=== PATIENT | female | born 1995 | race Hispanic/Latino ===

== ENCOUNTER 2017-11-29 17:22 | Emergency (ER) | payer OTHER, SELFPAY ==
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
[2017-11-29] MEDS ORDERED: KETOROLAC 30 MG/ML INJ ONE (18:43)
[2017-11-29 19:03] VITALS: TEMP 98.8
[2017-11-29 19:04] VITALS: BP 117/73; O2SAT 100
[2017-11-29 19:28] LABS: Urine Blood 1+ (NEG); Urine Glucose NEGATIVE (NEG); Urine Protein NEGATIVE (NEG)
== END 2017-11-29 18:58 | disposition home or self-care (01) ==
LOC: ER 17:22
DX: J01.90 Acute sinusitis, unspecified (principal)
CPT/HCPCS: 70450; 81003; 81025; 96372; 99284

== ENCOUNTER 2018-03-01 16:51 | Inpatient (IN) | payer BC, OTHER, SELFPAY ==
[2018-03-01] MEDS ORDERED: MORPHINE 4 MG/ML SYR ONE ×3 (17:43→21:34)
[2018-03-01 17:44] LABS: Absolute Lymphocytes (CBC) 3.1 K/uL (0.7-4.9); Absolute Monocytes 1.1 K/uL (0.1-1.3); Absolute Neutrophil 13.9 K/uL (1.8-8.0); Basophils % 0.5 % (0-1.3); Eosinophils % 0.5 % (0-4.4); Hematocrit 41.4 % (36.0-45.0); MCH 31.4 pg (27.0-35.0); MCV 91.5 fL (80-100); MPV 11.1 fL (7.6-11.3); Monocytes % 6.2 % (3.3-12.3); RBC Red Blood Cell Count 4.53 M/uL (3.86-4.86)
[2018-03-01] MEDS ORDERED: ONDANSETRON 4 MG/2 ML VIAL ONE (17:44)
[2018-03-01] MEDS ORDERED: NA CHLORIDE 0.9% 1,000 ML ONE ×3 (17:57→23:09)
[2018-03-01 17:59] LABS: ALT/SGPT 18 U/L (12-78); AST/SGOT 13 U/L (15-37); Albumin 3.7 g/dL (3.4-5.0); Alkaline Phosphatase 57 U/L (45-117); BUN Blood Urea Nitrogen 11 mg/dL (7-18); Bicarbonate 27 mmol/L (21-32); Bilirubin Direct 0.1 mg/dL (0-0.2); Bilirubin Total 0.5 mg/dL (0.2-1.0); Glucose Level 68 mg/dL (74-106); Lipase 143 U/L (73-393); Protein, Total 7.6 g/dL (6.4-8.2); Sodium Level 139 mmol/L (136-145)
[2018-03-01 18:14] LABS: Urine Blood NEGATIVE (NEG); Urine Glucose NEGATIVE (NEG); Urine Protein NEGATIVE (NEG); Urine pH 7.5 (5.0-7.0)
[2018-03-01 18:20] LABS: Urine Bacteria <20 /HPF (<20); Urine RBC NONE SEEN /HPF (NONE SEEN)
[2018-03-01 18:21] LABS: Urine Culture Reflex Order NOT NEEDED
--- NOTE | 2018-03-01 19:53 | RAD REPORT ---
EXAM DESCRIPTION: CTAbdomen Pelvis W Contrast - 03/01/2018 7:40 pm CLINICAL HISTORY: Abdominal pain. RLQ abdomen pain COMPARISON: CT ABD PELVIS W CONTRAST dated 09/28/2014 TECHNIQUE: Biphasic CT imaging of the abdomen and pelvis was performed with 100 ml non-ionic IV cont rast. All CT scans are performed using dose optimization technique as appropriate and may include automated exposure control or mA/KV adjustment according to patient size. FINDINGS: The lung bases are clear. The liver, spleen, adrenal glands and kidneys are within normal limits. Mild inflammation is seen in the region of the pancreatic head and duodenal C-loop suspicious for mild acute pancreatitis. No evid ence of pancreatic necrosis, portal vein thrombus or pseudocyst. Several mildly prominent peripancrea tic lymph nodes also noted. Correlation with amylase and lipase levels is advised. No bowel obstruction, free air, free fluid or abscess. The appendix is normal. No evidence of signi ficant lymphadenopathy. No suspicious bony findings. IMPRESSION: Mild acute pancreatitis is suspected. Correlation with amylase/lipase levels is advised.
--- NOTE | 2018-03-01 20:57 | RAD REPORT ---
EXAM DESCRIPTION: US - Abdomen Exam Limited - 03/01/2018 8:52 pm CLINICAL HISTORY: ABD PAIN COMPARISON: Abdomen Exam Limited dated 06/28/2016; Abdomen Pelvis W Contrast dated 03/01/2018 FINDINGS: The gallbladder demonstrates no gallstones. No pericholecystic fluid or gallbladder wall t hickening. The common bile duct is normal measuring 2 mm. The liver demonstrates no findings of intrahepatic biliary dilatation. IMPRESSION: Unremarkable examination.
--- NOTE | 2018-03-01 21:25 | ER ---
Nurse's Notes [facility] Name: Cate Brown Age: 22 yrs Sex: Female : 1995 Arrival Date: 03/01/2018 Time: 16:53 Bed 27 Private MD: Diagnosis: Acute pancreatitis Presentation: 03/01 16:54 Presenting complaint: Patient states: Upper abdominal pain for the past 2 to 3 days aj1 that has started to go to her right side. Reports nausea Denies fever. Denies V/D. Transition of care: patient was not received from another setting of care. Onset of symptoms was February 26, 2018. Risk Assessment: Do you want to hurt yourself or someone else? Patient reports no desire to harm self or others. Initial Sepsis Screen: Does the patient meet any 2 criteria? HR > 90 bpm. No. Patient's initial sepsis screen is negative. Does the patient have a suspected source of infection? Yes: Acute abdominal pain. Care prior to arrival: None. 16:54 Method Of Arrival: Ambulatory [facility] 16:54 Acuity: JOSELITO 3 aj1 Triage Assessment: 16:57 General: Appears uncomfortable, Behavior is cooperative, anxious, crying. Pain: aj1 Complains of pain in right lower quadrant Pain currently is 7 out of 10 on a pain scale. Neuro: Level of Consciousness is awake, alert, obeys commands. Cardiovascular: Patient's skin is warm and dry. Respiratory: Airway is patent Respiratory effort is even, unlabored, Respiratory pattern is regular, symmetrical. GI: Reports lower abdominal pain, nausea. 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 - Social history:: Smoking status: Patient/guardian denies using tobacco. - Ebola Screening: : Patient denies travel to an Ebola-affected area in the 21 days before illness onset. Screenin:15 Abuse screen: Denies threats or abuse. Denies injuries from another. Nutritional kr2 screening: No deficits noted. Tuberculosis screening: No symptoms or risk factors identified. Fall Risk None identified. Assessment: 17:15 General: Appears in no apparent distress. uncomfortable, well groomed, Behavior is kr2 cooperative, crying, restless. Pain: Complains of pain in right lower quadrant Pain radiates to abdomen Pain currently is 10 out of 10 on a pain scale. Quality of pain is described as sharp, shooting, stabbing, Pain began 2-3 days ago. Is continuous, Alleviated by nothing. Aggravated by increased activity, repositioning. Neuro: Level of Consciousness is awake, alert, obeys commands, Oriented to person, place, time, situation. Cardiovascular: Capillary refill < 3 seconds in bilateral fingers Patient's skin is warm and dry. Respiratory: Airway is patent Respiratory effort is even, unlabored, Respiratory pattern is regular, symmetrical. GI: Bowel sounds present X 4 quads. Abd is soft X 4 quads Abdomen is tender to palpation in right lower quadrant and left lower quadrant. GI: Reports nausea. : Reports pain with urination. EENT: Oral mucosa is moist. Derm: Skin is intact, is healthy with good turgor, Skin is pink, warm \T\ dry. Musculoskeletal: Circulation, motion, and sensation intact. 18:07 Reassessment: Patient completed contrast, CT department notified, spoke with Walter. kr2 19:11 Reassessment: Patient appears in no apparent distress at this time. Patient and/or kr2 family updated on plan of care and expected duration. Pain level reassessed. Patient is alert, oriented x 3, equal unlabored respirations, skin warm/dry/pink. Patient states symptoms have improved. 19:23 Reassessment: Patient states pain is beginning to worsen. Provider notified. kr2 20:25 Reassessment: Patient appears in no apparent distress at this time. Patient and/or kr2 family updated on plan of care and expected duration. Pain level reassessed. Patient is alert, oriented x 3, equal unlabored respirations, skin warm/dry/pink. Pain is decreased. Patient assisted to restroom. 21:30 Reassessment: Patient appears in no apparent distress at this time. Patient and/or kr2 family updated on plan of care and expected duration. Pain level reassessed. Patient is alert, oriented x 3, equal unlabored respirations, skin warm/dry/pink. 22:24 Reassessment: Patient appears in no apparent distress at this time. Patient and/or kr2 family updated on plan of care and expected duration. Pain level reassessed. Patient is alert, oriented x 3, equal unlabored respirations, skin warm/dry/pink. Pain is decreased after pain medication. 23:32 Reassessment: Patient appears in no apparent distress at this time. Patient and/or kr2 family updated on plan of care and expected duration. Pain level reassessed. Patient is alert, oriented x 3, equal unlabored respirations, skin warm/dry/pink. Patient states symptoms have improved. 03/02 00:17 Reassessment: Patient appears in no apparent distress at this time. Patient and/or kr2 family updated on plan of care and expected duration. Pain level reassessed. Patient is alert, oriented x 3, equal unlabored respirations, skin warm/dry/pink. Patient states symptoms have improved. Vital Signs: 03/01 16:57 BP 137 / 92; Pulse 108; Resp 20; Temp 97.6; Pulse Ox 100% on R/A; Weight 81.65 kg (R); aj1 Height 4 ft. 11 in. (149.86 cm) (R); Pain 7/10; 19:00 BP 123 / 90 LA Sitting (auto/lg); Pulse 83; Pulse Ox 99% on R/A; Pain 6/10; jp3 20:25 BP 115 / 70; Pulse 99; Resp 16; Pulse Ox 99% on R/A; kr2 21:30 BP 115 / 72; Pulse 89; Resp 17; Pulse Ox 100% ; kr2 22:24 BP 107 / 77; Pulse 82; Resp 17; Pulse Ox 100% ; kr2 23:33 BP 108 / 67; Pulse 85; Resp 17; Pulse Ox 100% on R/A; kr2 16:57 Body Mass Index 36.36 (81.65 kg, 149.86 cm) aj1 ED Course: 16:53 Patient arrived in ED. as 16:57 Triage completed. aj1 16:57 Arm band placed on Patient placed in an exam room. aj1 17:00 Placed in gown. Bed in low position. Call light in reach. Side rails up X 1. Side rails jp3 up X2. 17:19 Ray Calderon PA is PHCP. cp 17:19 Yousif Lam MD is Attending Physician. cp 17:30 Inserted saline lock: 20 gauge in right antecubital area, using aseptic technique. kr2 Blood collected. 17:32 Stephanie Burns, YOUNG is Primary Nurse. kr2 18:00 Oxygen administration via nasal cannula \T\ 2L/min. jp3 18:07 Urine collected: clean catch specimen, clear, parris colored, Amount Voided: 40mL. jp3 18:07 Urine Microscopic Only Sent. jp3 18:55 Warm blanket given. Pulse ox on. NIBP on. jp3 18:55 Response to oxygen therapy: symptoms improved. jp3 19:41 CT Abd/Pelvis - W/Contrast In Process Unspecified. EDMS 20:52 US Abdomen Limited: RUQ/epigastric area In Process Unspecified. EDMS 21:23 Dominik Delatorre MD is Hospitalizing Provider. cp 03/02 00:18 No provider procedures requiring assistance completed. Patient admitted, IV remains in kr2 place. Administered Medications: 03/01 17:43 Drug: Zofran 4 mg Route: IVP; Site: right antecubital; kr2 18:34 Follow up: Response: No adverse reaction; Nausea is decreased kr2 17:44 Drug: morphine 4 mg Route: IVP; Site: right antecubital; kr2 18:35 Follow up: Response: No adverse reaction; Pain is decreased kr2 17:56 Drug: NS 0.9% 1000 ml Route: IV; Rate: 1 bolus; Site: right antecubital; kr2 19:22 Follow up: Response: No adverse reaction; IV Status: Completed infusion kr2 19:28 Drug: morphine 4 mg Route: IVP; Site: right antecubital; kr2 20:00 Follow up: Response: No adverse reaction; Pain is decreased kr2 21:40 Drug: NS 0.9% 1000 ml Route: IV; Rate: 1 bolus; Site: right antecubital; kr2 23:20 Follow up: Response: No adverse reaction; IV Status: Completed infusion kr2 21:40 Drug: ProTONIX 40 mg Route: IVP; Site: right antecubital; kr2 22:22 Follow up: Response: No adverse reaction; Pain is decreased kr2 21:41 Drug: morphine 4 mg Route: IVP; Site: right antecubital; kr2 22:21 Follow up: Response: No adverse reaction; Pain is decreased kr2 23:20 Drug: NS 0.9% 1000 ml Route: IV; Rate: 125 ml/hr; Site: right antecubital; kr2 03/02 00:19 Follow up: Response: No adverse reaction; IV Status: Infusion continued upon admission kr2 Outcome: 03/01 21:24 Decision to Hospitalize by Provider. cp 03/02 00:18 Admitted to Med/surg accompanied by nurse, family with patient, via wheelchair, room kr2 217, with chart, Report called to YOUNG White Condition: stable Instructed on the need for admit, Demonstrated understanding of instructions. 00:21 Patient left the ED. kr2 Signatures: Dispatcher [employer] EDMS Izzy Osman RN RN farhan1 Sonal Harkins Corey, PA PA cp Reaves, Karey, RN RN kr2 Dennis Mercer jp3 Corrections: (The following items were deleted from the chart) 03/01 18:35 18:00 Inserted saline lock: 20 gauge in right antecubital area, using aseptic kr2 technique. Blood collected. kr2 20:26 19:12 BP 123 / 90; Pulse 87bpm; Resp 18bpm; Pulse Ox 100%; kr2 kr2 20:27 20:25 Reassessment: Patient appears in no apparent distress at this time. Patient kr2 and/or family updated on plan of care and expected duration. Pain level reassessed. Patient is alert, oriented x 3, equal unlabored respirations, skin warm/dry/pink. Pain is decreased kr2
--- NOTE | 2018-03-01 21:25 | EDPHYS ---
Physician Documentation [facility] Name: Cate Brown Age: 22 yrs Sex: Female : 1995 Arrival Date: 03/01/2018 Time: 16:53 Bed 27 Private MD: ED Physician Yousif Lam HPI: 03/01 17:25 This 22 yrs old Female presents to ER via Ambulatory with complaints of cp Abdominal Pain. 17:25 The patient presents with abdominal pain in the upper abdomen. cp 17:25 Onset: The symptoms/episode began/occurred 3 day(s) ago. cp 17:25 The symptoms radiate to right mid back. Associated signs and symptoms: Pertinent cp positives: nausea, vomiting, Pertinent negatives: chest pain, vomiting blood. The symptoms are described as constant. 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 - Social history:: Smoking status: Patient/guardian denies using tobacco. - Ebola Screening: : Patient denies travel to an Ebola-affected area in the 21 days before illness onset. ROS: 17:30 Constitutional: Negative for body aches, chills, fever. cp 17:30 Eyes: Negative for injury, pain, redness, and discharge. cp 17:30 Cardiovascular: Negative for chest pain, edema, palpitations. 17:30 Respiratory: Negative for cough, shortness of breath, wheezing. 17:30 Abdomen/GI: Positive for abdominal pain, nausea, vomiting, Negative for diarrhea, constipation, black/tarry stool, rectal bleeding. 17:30 : Negative for urinary symptoms, pelvic pain, vaginal bleeding, vaginal discharge. 17:30 Skin: Negative for cellulitis, rash. 17:30 All other systems are negative. Exam: 17:38 Constitutional: The patient appears in no acute distress, alert, awake, non-toxic, well cp developed, well nourished, uncomfortable. 17:38 Head/Face: Normocephalic, atraumatic. Eyes: Pupils equal round and reactive to light, cp extra-ocular motions intact. Lids and lashes normal. Conjunctiva and sclera are non-icteric and not injected. Cornea within normal limits. Periorbital areas with no swelling, redness, or edema. ENT: Nares patent. No nasal discharge, no septal abnormalities noted. Tympanic membranes are normal and external auditory canals are clear. Oropharynx with no redness, swelling, or masses, exudates, or evidence of obstruction, uvula midline. Mucous membranes moist. Chest/axilla: Normal chest wall appearance and motion. Nontender with no deformity. No lesions are appreciated. 17:38 Cardiovascular: Rate: tachycardic, Rhythm: regular, Edema: is not appreciated. 17:38 Respiratory: the patient does not display signs of respiratory distress, Respirations: normal, no use of accessory muscles, no retractions, no splinting, no tachypnea, labored breathing, is not present, Breath sounds: are clear throughout, no decreased breath sounds, no stridor, no wheezing. 17:38 Abdomen/GI: Inspection: abdomen appears normal, Bowel sounds: active, all quadrants, Palpation: soft, in all quadrants, severe abdominal tenderness, in the right upper quadrant and right lower quadrant, rebound tenderness, is not appreciated, voluntary guarding, is elicited in the right upper quadrant and right lower quadrant. 17:38 Back: CVA tenderness, that is moderate. 17:38 Skin: cellulitis, is not appreciated, no rash present. 17:38 Neuro: Orientation: to person, place \T\ time. Mentation: lucid, able to follow commands, Motor: moves all fours, strength is normal, Sensation: is normal. Vital Signs: 16:57 BP 137 / 92; Pulse 108; Resp 20; Temp 97.6; Pulse Ox 100% on R/A; Weight 81.65 kg (R); aj1 Height 4 ft. 11 in. (149.86 cm) (R); Pain 7/10; 19:00 BP 123 / 90 LA Sitting (auto/lg); Pulse 83; Pulse Ox 99% on R/A; Pain 6/10; jp3 20:25 BP 115 / 70; Pulse 99; Resp 16; Pulse Ox 99% on R/A; kr2 21:30 BP 115 / 72; Pulse 89; Resp 17; Pulse Ox 100% ; kr2 22:24 BP 107 / 77; Pulse 82; Resp 17; Pulse Ox 100% ; kr2 23:33 BP 108 / 67; Pulse 85; Resp 17; Pulse Ox 100% on R/A; kr2 16:57 Body Mass Index 36.36 (81.65 kg, 149.86 cm) aj1 MDM: 17:19 Patient medically screened. 21:20 Data reviewed: vital signs, nurses notes, lab test result(s), radiologic studies, CT cp scan. 21:23 Physician consultation: Dominik Delatorre MD was called at 21:23, was contacted at 21:23, regarding admission, to the medical/surgical unit. patient's condition. 03/01 17:26 Order name: Basic Metabolic Panel; Complete Time: 18:00 cp 03/01 19:56 Interpretation: Normal except: GLUC 68. 03/01 17:26 Order name: CBC with Diff; Complete Time: 18:00 cp 03/01 20:30 Interpretation: Normal except: WBC 18.4; MCV 91.5; MCH 31.4; BONITA% 75.8; NEUT A 13.9. 03/01 17:26 Order name: Creatinine for Radiology; Complete Time: 18:00 cp 03/01 17:26 Order name: Hepatic Function; Complete Time: 18:00 cp 03/01 21:01 Interpretation: Normal except: AST 13; GLOB 3.9; A/G 0.9. cp 03/01 17:26 Order name: Lipase; Complete Time: 18:00 cp 03/01 18:06 Order name: Urine Microscopic Only; Complete Time: 18:27 la1 03/01 18:28 Interpretation: Normal except: SQEPI LOADED. cp 03/01 17:26 Order name: CT Abd/Pelvis - W/Contrast; Complete Time: 19:55 cp 03/01 18:09 Order name: Urine Dipstick--Ancillary (enter results); Complete Time: 18:27 bd 03/01 18:28 Interpretation: Normal except: UPH 7.5; UESTR 1+. cp 03/01 18:09 Order name: Urine --Ancillary (enter results); Complete Time: 18:27 bd 03/01 18:28 Interpretation: Reviewed. 03/01 19:57 Order name: US Abdomen Limited: RUQ/epigastric area; Complete Time: 21:01 cp 03/01 17:26 Order name: IV Saline Lock; Complete Time: 17:45 cp 03/01 17:26 Order name: Labs collected and sent; Complete Time: 17:45 cp 03/01 17:26 Order name: Urine Dipstick-Ancillary (obtain specimen); Complete Time: 18:07 cp 03/01 17:26 Order name: Urine Test (obtain specimen); Complete Time: 18:07 cp 03/01 19:57 Order name: NPO; Complete Time: 20:11 cp Administered Medications: 17:43 Drug: Zofran 4 mg Route: IVP; Site: right antecubital; kr2 18:34 Follow up: Response: No adverse reaction; Nausea is decreased kr2 17:44 Drug: morphine 4 mg Route: IVP; Site: right antecubital; kr2 18:35 Follow up: Response: No adverse reaction; Pain is decreased kr2 17:56 Drug: NS 0.9% 1000 ml Route: IV; Rate: 1 bolus; Site: right antecubital; kr2 19:22 Follow up: Response: No adverse reaction; IV Status: Completed infusion kr2 19:28 Drug: morphine 4 mg Route: IVP; Site: right antecubital; kr2 20:00 Follow up: Response: No adverse reaction; Pain is decreased kr2 21:40 Drug: NS 0.9% 1000 ml Route: IV; Rate: 1 bolus; Site: right antecubital; kr2 23:20 Follow up: Response: No adverse reaction; IV Status: Completed infusion kr2 21:40 Drug: ProTONIX 40 mg Route: IVP; Site: right antecubital; kr2 22:22 Follow up: Response: No adverse reaction; Pain is decreased kr2 21:41 Drug: morphine 4 mg Route: IVP; Site: right antecubital; kr2 22:21 Follow up: Response: No adverse reaction; Pain is decreased kr2 23:20 Drug: NS 0.9% 1000 ml Route: IV; Rate: 125 ml/hr; Site: right antecubital; kr2 03/02 00:19 Follow up: Response: No adverse reaction; IV Status: Infusion continued upon admission kr2 Disposition: 03/01/18 21:24 Hospitalization ordered by Dominik Delatorre for Observation. Preliminary diagnosis is Acute pancreatitis. - Bed requested for Telemetry/MedSurg (observation). - Status is Observation. kr2 - Condition is Stable. - Problem is new. - Symptoms have improved. UTI on Admission? No Signatures: Dispatcher [employer] EDIzzy Worley RN RN aj1 Ray Calderon PA PA cp Thompson, Matilda mt Stephanie Burns RN RN kr2 Corrections: (The following items were deleted from the chart) 03/01 22:21 21:24 Hospitalization Ordered by Dominik Delatorre MD for Observation. Preliminary me diagnosis is Acute pancreatitis. Bed requested for Telemetry/MedSurg (observation). Status is Observation. Condition is Stable. Problem is new. Symptoms have improved. UTI on Admission? No. cp 03/02 00:21 03/01 22:21 03/01/2018 21:24 Hospitalization Ordered by Dominik Delatorre MD for kr2 Observation. Preliminary diagnosis is Acute pancreatitis. Bed requested for Telemetry/MedSurg (observation). Status is Observation. Condition is Stable. Problem is new. Symptoms have improved. UTI on Admission? No. mt
[2018-03-01] MEDS ORDERED: PANTOPRAZOLE 40 MG INJ ONE (21:34)
--- NOTE | 2018-03-01 23:46 | P.HP ---
Certification for Inpatient Patient admitted to: Observation With expected LOS: <2 Midnights Practitioner: I am a practitioner with admitting privileges, knowledge of patient current condition, hospital course, and medical plan of care. Services: Services provided to patient in accordance with Admission requirements found in Title 42 Section 412.3 of the Code of Federal Regulations Patient History Date of Service: 03/01/18 Reason for admission: Acute pancreatitis, UTI History of Present Illness: Ms Brown is a 22-year-old woman who start about 3 days ago with diffuse abdominal pain, mostly localized in epigastric area. Later the pain radiates to right lower quadrant bilateral upper back. The pain was dull, associated with nausea and vomiting. She denied any fever but has had chills. No diarrhea. Today the pain was getting worse and she decided to come to the ER for evaluation. Lab work remarkable for leukocytosis 18.9 K, UA 1+ Leukocyte Esterases. CT abdomen and pelvis remarkable for sign of acute pancreatitis, however lipase is within normal limits. Subsequent abdominal ultrasound showed no biliary tree abnormalities. Allergies No Known Drug Allergies Allergy (Verified 02/09/17 23:55) Unknown No Known Allergies Allergy (Uncoded 11/29/14 12:43) Unknown Home Medications: Pnv38/Iron Cbn&Gluc/FA/Dss/Dha [Citranatal Assure Combo Pack] 1 tab PO DAILY 07/19 Tramadol HCl [Ultram] 50 mg PO Q6HR #20 tablet 02/10/17 - Past Medical/Surgical History Diabetic: No -: trichomonis and chlamydia treated in 2011 -: D and C 2011 - Family History Father -: Hypertension, Lung disease, Stroke Mother -: Hypertension, Lung disease, Stroke - Social History Alcohol use: No CD- Drugs: No Caffeine use: Yes Place of Residence: Home Review of Systems 10-point ROS is otherwise unremarkable Physical Examination - Physical Exam General: Alert, In no apparent distress HEENT: Atraumatic, PERRLA, Mucous membr. moist/pink, EOMI, Sclerae nonicteric Neck: Supple, 2+ carotid pulse no bruit, No LAD, Without JVD or thyroid abnormality Respiratory: Clear to auscultation bilaterally, Normal air movement Cardiovascular: Regular rate/rhythm, Normal S1 S2 Gastrointestinal: Normal bowel sounds, Tenderness (Epigastric and right lower quadrant tender to palpation) Musculoskeletal: No tenderness Integumentary: No rashes Neurological: Normal speech, Normal strength at 5/5 x4 extr, Normal tone, Normal affect Lymphatics: No axilla or inguinal lymphadenopathy - Studies Laboratory Data (last 24 hrs) 03/01/18 17:30: Creatinine 0.70 03/01/18 17:30: WBC 18.4 H, Hgb 14.2, Hct 41.4, Plt Count 236 03/01/18 17:30: Sodium 139, Potassium 4.0, BUN 11, Creatinine 0.60, Glucose 68 L , Total Bilirubin 0.5, AST 13 L, ALT 18, Alkaline Phosphatase 57, Lipase 143 Assessment and Plan - Problems (Diagnosis) (1) Acute pancreatitis Current Visit: Yes Status: Acute Qualifiers: Pancreatitis type: unspecified pancreatitis type Acute pancreatitis complication: unspecified Qualified Code(s): K85.90 - Acute pancreatitis without necrosis or infection, unspecified (2) UTI (urinary tract infection) Current Visit: Yes Status: Acute Qualifiers: Urinary tract infection type: acute cystitis Hematuria presence: without hematuria Qualified Code(s): N30.00 - Acute cystitis without hematuria - Plan Will start empiric IV antibiotic for UTI. Continue IV fluids and bowel rest for acute pancreatitis. Will order lipid panel to evaluate for decided levels. - Advance Directives Does patient have a Living Will: No Does patient have a Durable POA for Healthcare: No - Code Status/Comfort Care Code Status Assessed: Yes Code Status: Full Code
[2018-03-02] MEDS ORDERED: ACETAMINOPHEN 500 MG TAB PO PRN (00:05)
[2018-03-02] MEDS: NA CHLORIDE 0.9% 1,000 ML IV SCH ×3 (00:05→21:05)
[2018-03-02] MEDS ORDERED: ONDANSETRON 4 MG/2 ML VIAL IV PRN (00:05)
[2018-03-02 00:37] VITALS: BMI 36.6
[2018-03-02] MEDS ORDERED: CEFTRIAXONE 1 GM/NS 50 ML 1 GM/50 ML BAG IV SCH (01:00)
[2018-03-02] MEDS ORDERED: CEFTRIAXONE 1000 MG/VIAL ONE (01:38)
[2018-03-02] MEDS ORDERED: NA CHLORIDE 0.9% 100 ML ONE (01:38)
[2018-03-02 05:23] LABS: Absolute Lymphocytes (CBC) 2.3 K/uL (0.7-4.9); Absolute Monocytes 0.8 K/uL (0.1-1.3); Absolute Neutrophil 10.8 K/uL (1.8-8.0); Basophils % 0.1 % (0-1.3); Eosinophils % 0.4 % (0-4.4); Hematocrit 38.1 % (36.0-45.0); Lymphocytes % 16.7 % (15.3-44.8); MCH 30.5 pg (27.0-35.0); MCV 93.5 fL (80-100); MPV 11.8 fL (7.6-11.3); RBC Red Blood Cell Count 4.07 M/uL (3.86-4.86)
[2018-03-02 05:43] LABS: BUN Blood Urea Nitrogen 6 mg/dL (7-18); Bicarbonate 24 mmol/L (21-32); Glucose Level 87 mg/dL (74-106); Magnesium 2.1 mg/dL (1.8-2.4); Potassium 3.9 mmol/L (3.5-5.1); Sodium Level 141 mmol/L (136-145)
[2018-03-02] MEDS ORDERED: KCL 20 MEQ/100 mL IVPB 20 MEQ/100 ML BAG IV SCH (07:00)
[2018-03-02] MEDS ORDERED: PNEUMOCOCCAL VACCINE 0.5 ML IMVAC ONE (08:00)
[2018-03-02] MEDS: ENOXAPARIN 40 MG/0.4 ML SQ SCH (08:56)
[2018-03-02] MEDS: MORPHINE 2 MG/ML SYR IV PRN ×3 (09:59→21:10)
--- NOTE | 2018-03-02 16:04 | P.PN ---
Subjective Date of Service: 03/02/18 Chief Complaint: Acute pancreatitis, UTI Patient seen and examined at bedside. Boyfriend and best friend at bedside. Case discussed with nursing staff. Patient reports slightly improved pain from yesterday though still having the right-sided abdominal pain and intermittent nausea. Denies any vomiting, diarrhea or fevers. Last bowel movement was 2 days ago but her patient, she normally does not have a bowel movement every day but every other day. Review of Systems As noted above Physical Examination - Vital Signs Temperature: 97.3 F Blood Pressure: 117/70 Pulse: 87 Respirations: 18 Pulse Ox (%): 99 - Physical Exam General: Alert, In no apparent distress HEENT: Atraumatic, PERRLA, EOMI Neck: Supple, JVD not distended Respiratory: Clear to auscultation bilaterally, Normal air movement Cardiovascular: Regular rate/rhythm, Normal S1 S2 Gastrointestinal: Normal bowel sounds, Non-distended, Tenderness (Right upper and lower quadrant), Rebound, Guarding Musculoskeletal: No tenderness Integumentary: No rashes Neurological: Normal speech, Normal tone, Normal affect Lymphatics: No axilla or inguinal lymphadenopathy - Studies Laboratory Data (last 24 hrs) 03/02/18 04:17: Sodium 141, Potassium 3.9, BUN 6 L, Creatinine 0.50 L, Glucose 87, Magnesium 2.1 03/02/18 04:17: Triglycerides 40, Cholesterol 115, HDL Cholesterol 48, Cholesterol/HDL Ratio 2.40, Lipase 83 03/02/18 04:17: WBC 14.0 H D, Hgb 12.4, Hct 38.1, Plt Count 178 D 03/02/18 00:23: Amylase 38 03/01/18 17:30: Creatinine 0.70 03/01/18 17:30: WBC 18.4 H, Hgb 14.2, Hct 41.4, Plt Count 236 03/01/18 17:30: Sodium 139, Potassium 4.0, BUN 11, Creatinine 0.60, Glucose 68 L , Total Bilirubin 0.5, AST 13 L, ALT 18, Alkaline Phosphatase 57, Lipase 143 Medications List Reviewed: Yes Assessment And Plan - Current Problems (Diagnosis) (1) Acute pancreatitis Onset Date: 03/02/18 Current Visit: Yes Status: Acute Plan: Patient admitted for acute pancreatitis. CT with mild acute pancreatitis, appendix noted to be normal. The lipase in normal range though she could still have an episode of acute pancreatitis. She does have a white count. - lipid panel a normal range - Continue NPO, IV fluids. Pain control with medications. Monitor overnight, check a.m. labs. - may consider getting general surgery to see patient to see if any need for surgical evaluation, though less likely. - Will discontinue antibiotics Qualifiers: Pancreatitis type: unspecified pancreatitis type Acute pancreatitis complication: unspecified Qualified Code(s): K85.90 - Acute pancreatitis without necrosis or infection, unspecified Discharge Plan: Home Plan to discharge in: 48 Hours
[2018-03-02] MEDS ORDERED: CEFTRIAXONE/SWI 1gm 1 GM/10 ML SYR IV SCH (21:00)
[2018-03-03] MEDS: MORPHINE 2 MG/ML SYR IV PRN ×2 (04:43→09:47)
[2018-03-03] MEDS: NA CHLORIDE 0.9% 1,000 ML IV SCH ×2 (04:43→16:43)
[2018-03-03 05:12] LABS: Absolute Lymphocytes (CBC) 2.1 K/uL (0.7-4.9); Absolute Monocytes 0.5 K/uL (0.1-1.3); Absolute Neutrophil 5.1 K/uL (1.8-8.0); Basophils % 0.5 % (0-1.3); Eosinophils % 1.4 % (0-4.4); Hematocrit 35.8 % (36.0-45.0); Lymphocytes % 26.9 % (15.3-44.8); MCH 31.2 pg (27.0-35.0); MCV 92.5 fL (80-100); MPV 11.7 fL (7.6-11.3); Monocytes % 5.8 % (3.3-12.3); RBC Red Blood Cell Count 3.87 M/uL (3.86-4.86)
[2018-03-03 05:25] LABS: ALT/SGPT 13 U/L (12-78); AST/SGOT 10 U/L (15-37); Albumin 2.8 g/dL (3.4-5.0); Alkaline Phosphatase 42 U/L (45-117); BUN Blood Urea Nitrogen 7 mg/dL (7-18); Bicarbonate 24 mmol/L (21-32); Glucose Level 67 mg/dL (74-106); Potassium 3.8 mmol/L (3.5-5.1); Protein, Total 6.1 g/dL (6.4-8.2); Sodium Level 140 mmol/L (136-145)
[2018-03-03] MEDS ORDERED: KCL 20 MEQ/100 mL IVPB 20 MEQ/100 ML BAG IV SCH (07:00)
[2018-03-03] MEDS: ENOXAPARIN 40 MG/0.4 ML SQ SCH (08:53)
--- NOTE | 2018-03-03 14:44 | P.PN ---
Subjective Date of Service: 03/03/18 Chief Complaint: Acute pancreatitis, UTI Patient seen and examined at bedside. Boyfriend and mother at bedside. Case discussed with nursing staff. Patient reports vast improvement in pain compared to yesterday. Reports a bowel movement last night. She is walking around without any problems. Denies any nausea, vomiting, diarrhea or fevers. Review of Systems As noted above Physical Examination - Vital Signs Temperature: 97.0 F Blood Pressure: 110/59 Pulse: 58 Respirations: 16 Pulse Ox (%): 100 - Physical Exam General: Alert, In no apparent distress HEENT: Atraumatic, PERRLA, EOMI Neck: Supple, JVD not distended Respiratory: Clear to auscultation bilaterally, Normal air movement Cardiovascular: Regular rate/rhythm, Normal S1 S2 Gastrointestinal: Normal bowel sounds, Tenderness (Mild tenderness on deep palpation, right sided) Musculoskeletal: No tenderness Integumentary: No rashes Neurological: Normal speech, Normal tone, Normal affect - Studies Medications List Reviewed: Yes Assessment And Plan - Current Problems (Diagnosis) (1) Acute pancreatitis Onset Date: 03/02/18 Current Visit: Yes Status: Acute Plan: Patient admitted for acute pancreatitis. CT with mild acute pancreatitis, appendix noted to be normal. The lipase in normal range though she could still have an episode of acute pancreatitis. She does have a white count, which is improved. - lipid panel in normal range - trial of full liquid diet. If she tolerates diet, will discontinue IV fluids. Pain control with medications. check a.m. labs. - Will discontinue antibiotics Qualifiers: Pancreatitis type: unspecified pancreatitis type Acute pancreatitis complication: unspecified Qualified Code(s): K85.90 - Acute pancreatitis without necrosis or infection, unspecified - Plan If tolerating liquid/soft diet common, may discharge home tomorrow Discharge Plan: Home Plan to discharge in: 24 Hours
[2018-03-04 01:05] VITALS: O2SAT 99
[2018-03-04] MEDS: NA CHLORIDE 0.9% 1,000 ML IV SCH (03:51)
[2018-03-04] MEDS: MORPHINE 2 MG/ML SYR IV PRN (03:54)
[2018-03-04 07:04] LABS: Absolute Lymphocytes (CBC) 2.1 K/uL (0.7-4.9); Absolute Monocytes 0.4 K/uL (0.1-1.3); Absolute Neutrophil 3.2 K/uL (1.8-8.0); Basophils % 0.5 % (0-1.3); Eosinophils % 1.7 % (0-4.4); Hematocrit 38.3 % (36.0-45.0); Lymphocytes % 36.5 % (15.3-44.8); MCH 31.9 pg (27.0-35.0); MCV 92.2 fL (80-100); MPV 11.5 fL (7.6-11.3); Monocytes % 6.3 % (3.3-12.3); RBC Red Blood Cell Count 4.16 M/uL (3.86-4.86)
[2018-03-04 07:06] LABS: ALT/SGPT 15 U/L (12-78); AST/SGOT 13 U/L (15-37); Alkaline Phosphatase 40 U/L (45-117); BUN Blood Urea Nitrogen 9 mg/dL (7-18); Bicarbonate 29 mmol/L (21-32); Bilirubin Total 0.7 mg/dL (0.2-1.0); Glucose Level 88 mg/dL (74-106); Potassium 4.2 mmol/L (3.5-5.1); Protein, Total 6.7 g/dL (6.4-8.2); Sodium Level 140 mmol/L (136-145)
[2018-03-04] MEDS: ENOXAPARIN 40 MG/0.4 ML SQ SCH (09:35)
[2018-03-04 11:16] VITALS: BP 109/63; TEMP 97.4
--- NOTE | 2018-03-05 05:22 | DS ---
Date of Discharge: 03/04/2018 Discharge Diagnoses: 1.Acute pancreatitis, improved. 2.Abdominal pain, improved. 3.Nausea. Consult: None. Procedure: CAT scan of the abdomen and pelvis done on the showed mild acute pancreatitis. Ultr asound of the abdomen was unremarkable. For history and physical exam, please refer to Dr. Meyer's admission note. Hospital Course: Initially, the patient presented with history of 3 days of diffuse abdominal pain i n epigastric area. CAT scan of the abdomen showed mild pancreatitis. Lipase, amylase were normal. The patient was admitted to the hospital. Kept n.p.o. with pain medication and her pain improved. T hen she was started on the clear liquid, tolerated that well, but then when we advanced to soft mecha jaylon, she started to have abdominal pain again. So we reduced diet again to clear and we will dischar ge her today in stable condition. She will be discharged on p.r.n. pain medication with Tylenol 3 an d p.r.n. Compazine for nausea if needed. She advised not to advance to regular diet until after few days. She will continue 2 more days of clear liquids and soft mechanical and follow up primary care physician coming week. Discharge Condition: Stable. Discharge Diet: Liquid. Discharge Activity: As tolerated. Discharge Medications: Compazine 10 mg q.6 hours as needed and Tylenol 3 every 6 hours as needed for pain. Discharge Physical Examination: Vital Signs: Blood pressure is 113/70, respiratory rate 16, pulse 6 6, temperature 98.4. General: The patient is alert and oriented x3. Does not look in any distress. HEENT: Atraumatic, normocephalic. PERRLA. Oral mucosa is moist. Neck: Supple. No JVD. No carotid bruits. Chest: Clear to auscultation. Good air entry. Heart: Regular rate and rhythm. S1, S2 normal. No gallop or murmur. Abdomen: Soft. No masses. No hepatosplenomegaly. Positive bowel sounds. Extremities: No clubbing, cyanosis, or edema. No calf tenderness. Neurologic: Grossly intact. RALPH/PIOTR Voice ID: [id number] Report ID: [id number]
== END 2018-03-04 12:35 | disposition home or self-care (01) | DRG 439 ==
LOC: ER 16:51 → ERHOLD 21:31 → 2ND 23:40 → OBSVTOIN 03-02 10:31
PROVIDERS: ADMIT Internal Medicine; ATTEND Internal Medicine
DX: K85.90 Acute pancreatitis without necrosis or infection, unspecified (principal); N30.00 Acute cystitis without hematuria
CPT/HCPCS: 36415; 74177; 76705; 80048; 80053; 80061; 80076; 81003; 81015; 81025; 82150; 83690; 83735; 85025; 96361; 96374; 96375; 99285; C9113; J0696; J1650; J2270; J2405; J7030; Q9967

== ENCOUNTER 2019-01-12 20:03 | Emergency (ER) | payer BC ==
[2019-01-12] MEDS ORDERED: FENTANYL CITR 100 MCG/2 ML ONE ×2 (20:37→21:29)
[2019-01-12] MEDS ORDERED: ONDANSETRON 4 MG/2 ML VIAL ONE (20:38)
[2019-01-12] MEDS ORDERED: KETOROLAC 30 MG/ML INJ ONE (21:29)
--- NOTE | 2019-01-12 22:30 | ER ---
Nurse's Notes [facility] Name: Cate Brown Age: 23 yrs Sex: Female : 1995 Arrival Date: 01/12/2019 Time: 20:05 Bed 27 Private MD: Diagnosis: Sprain of ankle Presentation: 01/12 20:07 Presenting complaint: EMS states: Pt missed a step at [facility]. Pt reported L ankle ca1 rolled both ways, she heard cracking and there was an obvious deformity on the L ankle. 20:07 Method Of Arrival: EMS: [facility] ca1 20:10 Transition of care: patient was not received from another setting of care. Onset of ca1 symptoms was January 12, 2019. Risk Assessment: Do you want to hurt yourself or someone else? Patient reports no desire to harm self or others. Initial Sepsis Screen: Does the patient meet any 2 criteria? No. Patient's initial sepsis screen is negative. Does the patient have a suspected source of infection? No. Patient's initial sepsis screen is negative. Care prior to arrival: Splint applied. 20:10 Acuity: JOSELITO 4 ca1 Triage Assessment: 23:19 Injury Description: Fall and rolled ankle. tr5 [employer]: 20:11 LMP 12/31/2018 ca1 Historical: - Allergies: 20:11 No Known Allergies; ca1 - Home Meds: 20:11 None [Active]; ca1 - PMHx: 20:11 None; ca1 - PSHx: 20:11 None; ca1 - Immunization history:: Adult Immunizations up to date, Last tetanus immunization: up to date. - Social history:: Smoking status: Patient/guardian denies using tobacco. - Ebola Screening: : Patient negative for fever greater than or equal to 101.5 degrees Fahrenheit, and additional compatible Ebola Virus Disease symptoms Patient denies exposure to infectious person Patient denies travel to an Ebola-affected area in the 21 days before illness onset No symptoms or risks identified at this time. Screenin:18 Abuse screen: Denies threats or abuse. Nutritional screening: No deficits noted. tr5 Tuberculosis screening: No symptoms or risk factors identified. Fall Risk None identified. Assessment: 20:18 General: Appears uncomfortable, Behavior is calm, cooperative, appropriate for age. tr5 Pain: Complains of pain in left foot Pain does not radiate. Pain currently is 9 out of 10 on a pain scale. Quality of pain is described as aching, crushing, Pain began 1 hour ago. Is continuous. Neuro: Level of Consciousness is awake, alert, obeys commands, Oriented to person, place, time, Lever Miller are equal bilaterally Moves all extremities. Cardiovascular: Heart tones present Capillary refill < 3 seconds Pulses are all present. Edema is absent. Respiratory: Airway is patent Respiratory effort is even, unlabored, Respiratory pattern is regular, symmetrical. GI: No signs and/or symptoms were reported involving the gastrointestinal system. : No signs and/or symptoms were reported regarding the genitourinary system. EENT: No signs and/or symptoms were reported regarding the EENT system. Derm: No signs and/or symptoms reported regarding the dermatologic system. Musculoskeletal: Capillary refill < 3 seconds, Range of motion: limited in left ankle. 21:34 Reassessment: Patient and/or family updated on plan of care and expected duration. Pain tr5 level reassessed. Patient is alert, oriented x 3, equal unlabored respirations, skin warm/dry/pink. 22:30 Reassessment: Patient appears in no apparent distress at this time. No changes from tr5 previously documented assessment. Patient is alert, oriented x 3, equal unlabored respirations, skin warm/dry/pink. Vital Signs: 20:11 BP 121 / 78; Pulse 94; Resp 19 S; Temp 98.4(O); Pulse Ox 100% on R/A; Weight 97.07 kg ca1 (R); Height 4 ft. 11 in. (149.86 cm) (R); Pain 7/10; 21:34 BP 128 / 77; Pulse 85; Resp 16; Pulse Ox 100% on R/A; tr5 22:30 BP 139 / 76; Pulse 72; Resp 15; Pulse Ox 100% on R/A; tr5 20:11 Body Mass Index 43.22 (97.07 kg, 149.86 cm) ca1 ED Course: 20:05 Patient arrived in ED. ds1 20:07 Jaxon Zambrano PA is PHCP. jmm 20:07 Guicho Leon MD is Attending Physician. jmm 20:10 Bess Ventura RN is Primary Nurse. ca1 20:10 Triage completed. ca1 20:11 Arm band placed on right wrist. Affected limb elevated. ca1 20:15 Geoffrey Delgado, RN is Primary Nurse. tr5 20:18 Patient has correct armband on for positive identification. Pulse ox on. NIBP on. tr5 20:23 Inserted saline lock: 22 gauge in right antecubital area, using aseptic technique. lt1 21:06 Ankle Left 3 View XRAY In Process Unspecified. EDMS 21:06 Tib Fib Left XRAY In Process Unspecified. EDMS 22:24 Thai Newberry MD is Referral Physician. jmm 22:45 Crutch training done. Orthoglass splint: Posterior short lleg splint applied on left lt1 leg. 23:18 No provider procedures requiring assistance completed. IV discontinued. tr5 Administered Medications: 20:39 Drug: fentaNYL (PF) 25 mcg {Note: RAAS:0.} Route: IVP; Site: right antecubital; tr5 21:33 Follow up: Response: Pain is unchanged, physician notified tr5 20:40 Drug: Zofran 4 mg Route: IVP; Site: right antecubital; tr5 21:33 Follow up: Response: Nausea is decreased tr5 21:33 Drug: fentaNYL (PF) 50 mcg Route: IVP; Site: right antecubital; tr5 22:25 Follow up: Response: Pain is decreased tr5 21:33 Drug: Ketorolac 30 mg Route: IVP; Site: right antecubital; tr5 22:27 Follow up: Response: Pain is decreased tr5 Outcome: 22:24 Discharge ordered by MD. july 23:18 Discharged to home via wheelchair. tr5 23:18 Condition: stable 23:18 Discharge instructions given to patient, Instructed on discharge instructions, follow up and referral plans. medication usage, Demonstrated understanding of instructions, follow-up care, medications. 23:20 Patient left the ED. tr5 Signatures: Dispatcher [employer] EDMS Jaxon Zambrano PA PA jmm Sanford, Demi ds1 Bess Ventura RN RN ca1 Bren Hernandez lt1 Geoffrey Delgado RN RN tr5 Corrections: (The following items were deleted from the chart) 20:40 20:39 fentaNYL (PF) 25 mcg IVP in right antecubital tr5 tr5
--- NOTE | 2019-01-12 22:31 | EDPHYS ---
Physician Documentation [facility] Name: Cate Brown Age: 23 yrs Sex: Female : 1995 Arrival Date: 01/12/2019 Time: 20:05 Bed 27 Private MD: ED Physician Guicho Leon HPI: 01/12 20:11 This 23 yrs old Female presents to ER via EMS with complaints of Foot Injury. jmm 20:11 The patient presents with an injury, pain, that is acute. Onset: The symptoms/episode jmm began/occurred acutely. Modifying factors: The symptoms are alleviated by nothing. the symptoms are aggravated by nothing. This is a 23 year old female with no chronic medical conditions that presents to the ED with complaints of left ankle pain. Patient states she misstepped rolling her left ankle. Patient states she felt a pop. Patient denies other injury. . [place]P [place]: 20:11 LMP 12/31/2018 ca1 Historical: - Allergies: 20:11 No Known Allergies; ca1 - Home Meds: 20:11 None [Active]; ca1 - PMHx: 20:11 None; ca1 - PSHx: 20:11 None; ca1 - Immunization history:: Adult Immunizations up to date, Last tetanus immunization: up to date. - Social history:: Smoking status: Patient/guardian denies using tobacco. - Ebola Screening: : Patient negative for fever greater than or equal to 101.5 degrees Fahrenheit, and additional compatible Ebola Virus Disease symptoms Patient denies exposure to infectious person Patient denies travel to an Ebola-affected area in the 21 days before illness onset No symptoms or risks identified at this time. ROS: 20:11 Constitutional: Negative for fever, chills, and weight loss, Cardiovascular: Negative jmm for chest pain, palpitations, and edema, Respiratory: Negative for shortness of breath, cough, wheezing, and pleuritic chest pain. 20:11 MS/extremity: Positive for injury or acute deformity, pain, swelling. 20:11 All other systems are negative. Exam: 20:11 Head/Face: atraumatic. Eyes: EOMI, no conjunctival erythema appreciated ENT: Moist jmm Mucus Membranes Neck: Trachea midline, Supple Chest/axilla: Normal chest wall appearance and motion. Cardiovascular: Regular rate and rhythm. No edema appreciated Respiratory: Normal respirations, no respiratory distress appreciated Abdomen/GI: Non distended, soft Back: Normal ROM Skin: General appearance color normal 20:11 Constitutional: The patient appears in no acute distress, alert, awake, uncomfortable. 20:11 Musculoskeletal/extremity: swelling noted to the left ankle, full dorsalis pulse, compartments are soft, NVI. 20:11 Skin: Appearance: Color: normal in color. 20:11 Neuro: Orientation: is normal, Mentation: is normal, Memory: is normal. 20:11 Psych: Behavior/mood is pleasant, cooperative. Vital Signs: 20:11 BP 121 / 78; Pulse 94; Resp 19 S; Temp 98.4(O); Pulse Ox 100% on R/A; Weight 97.07 kg ca1 (R); Height 4 ft. 11 in. (149.86 cm) (R); Pain 7/10; 21:34 BP 128 / 77; Pulse 85; Resp 16; Pulse Ox 100% on R/A; tr5 22:30 BP 139 / 76; Pulse 72; Resp 15; Pulse Ox 100% on R/A; tr5 20:11 Body Mass Index 43.22 (97.07 kg, 149.86 cm) ca1 Procedures: 22:22 Splinting: Splint applied to left foot using Orthoglass splint, applied by techAleena mcdowell Examined by me, post splint application: neurovascular intact, 2+ distal pulses palpable, brisk capillary refill noted, Patient tolerated well. MDM: 20:11 Patient medically screened. forest 22:22 Data reviewed: vital signs, nurses notes. Counseling: I had a detailed discussion with july the patient and/or guardian regarding: the historical points, exam findings, and any diagnostic results supporting the discharge/admit diagnosis, radiology results, the need for outpatient follow up, to return to the emergency department if symptoms worsen or persist or if there are any questions or concerns that arise at home. ED course: Fracture is not appreciated on plain film. Posterior splint applied. I recommended close ortho follow up and patient and mother given compartment syndrome return precautions. Patient understood and agrees with the plan of care. . 01/12 20:13 Order name: Ankle Left 3 View XRAY [facility] 01/12 20:13 Order name: Tib Fib Left XRAY [facility] 01/12 20:13 Order name: Saline Lock; Complete Time: 20:23 [facility] 01/12 21:25 Order name: Posterior Leg Splint; Complete Time: 22:27 [facility] 01/12 21:25 Order name: Crutches; Complete Time: 22:46 [facility] Administered Medications: 20:39 Drug: fentaNYL (PF) 25 mcg {Note: RAAS:0.} Route: IVP; Site: right antecubital; tr5 21:33 Follow up: Response: Pain is unchanged, physician notified tr5 20:40 Drug: Zofran 4 mg Route: IVP; Site: right antecubital; tr5 21:33 Follow up: Response: Nausea is decreased tr5 21:33 Drug: fentaNYL (PF) 50 mcg Route: IVP; Site: right antecubital; tr5 22:25 Follow up: Response: Pain is decreased tr5 21:33 Drug: Ketorolac 30 mg Route: IVP; Site: right antecubital; tr5 22:27 Follow up: Response: Pain is decreased tr5 Disposition: 01/13 06:43 Co-signature as Attending Physician, Guicho Leon MD. Disposition: 01/12/19 22:24 Discharged to Home. Impression: Sprain of ankle. - Condition is Stable. - Discharge Instructions: Ankle Sprain. - Prescriptions for Ibuprofen 800 mg Oral Tablet - take 1 tablet by ORAL route every 8 hours As needed take with food; 30 tablet. - Medication Reconciliation Form, Thank You Letter, Antibiotic Education, Prescription Opioid Use form. - Follow up: Thai Newberry MD; When: 2 - 3 days; Reason: Recheck today's complaints, Continuance of care, Re-evaluation by your physician. Signatures: Dispatcher [employer] EDMS Jaxon Zambrano PA PA Guicho Bejarano MD MD Bess Ventura, RN RN ca1 Geoffrey Delgado RN RN tr5 Corrections: (The following items were deleted from the chart) 01/12 23:20 22:24 01/12/2019 22:24 Discharged to Home. Impression: Sprain of ankle. Condition is tr5 Stable. Forms are Medication Reconciliation Form, Thank You Letter, Antibiotic Education, Prescription Opioid Use. Follow up: Thai Newberry; When: 2 - 3 days; Reason: Recheck today's complaints, Continuance of care, Re-evaluation by your physician. july
[2019-01-13 01:25] VITALS: TEMP 98.4; O2SAT 100
[2019-01-13 01:27] VITALS: BP 139/76
--- NOTE | 2019-01-13 10:06 | RAD REPORT ---
EXAM DESCRIPTION: RAD - Tib Fib Left - 01/12/2019 9:03 pm CLINICAL HISTORY: Trip and fall, left leg and ankle pain COMPARISON: None. FINDINGS: No fracture is identified. There is no dislocation or periosteal reaction noted. No knee j oint effusion seen. Prominent lateral soft tissue swelling present. Ankle is further detailed on sepa rate report. No foreign body. IMPRESSION: No left tibia fibula acute bone finding.
--- NOTE | 2019-01-13 10:06 | RAD REPORT ---
EXAM DESCRIPTION: RAD - Ankle Left 3 View - 01/12/2019 9:03 pm CLINICAL HISTORY: Trip and fall, left leg and ankle pain COMPARISON: None. FINDINGS: No fracture, dislocation or periosteal reaction. No joint effusion seen. No joint space na rrowing. Prominent lateral soft tissue swelling present. IMPRESSION: Prominent lateral ankle soft tissue swelling. No fracture or acute bone finding identifi ed.
== END 2019-01-12 23:20 | disposition home or self-care (01) ==
LOC: ER 20:03
PROC: 2W3RX1Z Immobilization of Left Lower Leg using Splint (ICD-10-PCS; principal; 2019-01-12)
DX: S93.402A Sprain of unspecified ligament of left ankle, initial encounter (principal); X50.1XXA Overexertion from prolonged static or awkward postures, initial encounter; Y93.89 Activity, other specified
CPT/HCPCS: 73590; 73610; 96375; 96374; 99284; 29515; J3010 ×2; J2405

== ENCOUNTER 2019-05-07 17:43 | Emergency (ER) | payer BC ==
[2019-05-07] MEDS ORDERED: NA CHLORIDE 0.9% 1,000 ML ONE (17:57)
[2019-05-07 18:11] LABS: Absolute Lymphocytes (CBC) 0.3 K/uL (0.7-4.9); Basophils % 0.1 % (0-1.3); Hematocrit 38.3 % (36.0-45.0); Lymphocytes % 3.8 % (15.3-44.8); MPV 11.6 fL (7.6-11.3); RBC Red Blood Cell Count 4.04 M/uL (3.86-4.86)
[2019-05-07 18:23] LABS: ALT/SGPT 16 U/L (12-78); AST/SGOT 17 U/L (15-37); Albumin 3.3 g/dL (3.4-5.0); Alkaline Phosphatase 35 U/L (45-117); BUN Blood Urea Nitrogen 3 mg/dL (7-18); Bicarbonate 20 mmol/L (21-32); Bilirubin Direct 0.1 mg/dL (0-0.2); Bilirubin Total 0.7 mg/dL (0.2-1.0); Glucose Level 85 mg/dL (74-106); Lipase 52 U/L (73-393); Potassium 3.3 mmol/L (3.5-5.1); Protein, Total 6.9 g/dL (6.4-8.2); Sodium Level 137 mmol/L (136-145)
[2019-05-07] MEDS ORDERED: ACETAMINOPHEN 500 MG TAB ONE (18:58)
[2019-05-07 19:51] LABS: Barbiturates NEGATIVE (NEGATIVE); Benzodiazepines NEGATIVE (NEGATIVE); Cocaine NEGATIVE (NEGATIVE); METHAMPHETAM NEGATIVE (NEGATIVE); Methadone NEGATIVE (NEGATIVE); Opiates NEGATIVE (NEGATIVE); Phencyclidine NEGATIVE (NEGATIVE); THC Cannibis NEGATIVE (NEGATIVE)
[2019-05-07] MEDS ORDERED: POTASSIUM CL SA 10 MEQ TAB PO ONE (20:07)
--- NOTE | 2019-05-07 20:29 | ER ---
Nurse's Notes [facility] Name: Cate Brown Age: 23 yrs Sex: Female : 1995 Arrival Date: 05/07/2019 Time: 17:45 Bed 26 Private MD: Diagnosis: Nausea and vomiting Presentation: 05/07 17:47 Presenting complaint: EMS states: found the patient on the floor on her side. she has rv no history of seizure/pre-eclampsia. blood sugar is 86. she does not want to respond to questions properly, but orientation is x4. Transition of care: patient was not received from another setting of care. Onset of symptoms was May 07, 2019 at 17:30. Risk Assessment: Do you want to hurt yourself or someone else? Patient reports no desire to harm self or others. Initial Sepsis Screen: Does the patient meet any 2 criteria? No. Patient's initial sepsis screen is negative. Does the patient have a suspected source of infection? No. Patient's initial sepsis screen is negative. Care prior to arrival: None. 17:47 Method Of Arrival: EMS: [facility] rv 17:47 Acuity: JOSELITO 3 rv Historical: - Allergies: 18:07 No Known Allergies; rv - Home Meds: 18:07 None [Active]; rv - PMHx: 18:07 Pancreatitis; rv - PSHx: 18:07 None; rv - Immunization history:: Adult Immunizations unknown. - Social history:: Smoking status: Patient/guardian denies using tobacco. - Ebola Screening: : No symptoms or risks identified at this time. Screenin:08 Abuse screen: Denies threats or abuse. Denies injuries from another. Nutritional rv screening: No deficits noted. Tuberculosis screening: No symptoms or risk factors identified. Fall Risk None identified. Assessment: 18:07 General: Appears in no apparent distress. Behavior is drowsy, uncooperative. Pain: rv Denies pain. Neuro: Level of Consciousness is able to communicate but does not want to talk. Cardiovascular: Patient's skin is warm and dry. Rhythm is sinus tachycardia. Respiratory: Airway is patent. Derm: Skin is intact. 20:35 Reassessment: Patient appears in no apparent distress at this time. Patient denies pain mg2 at this time. Patient states feeling better. Vital Signs: 17:49 BP 116 / 67; Pulse 111; Resp 18; Temp 98.7; Pulse Ox 100% ; rv 20:09 BP 110 / 74; Pulse 110; Resp 18; Pulse Ox 98% on R/A; mg2 Vitals: 18:06 Heart Tones 150s RLQ. rv ED Course: 17:45 Patient arrived in ED. mg2 17:46 Selvin Muro RN is Primary Nurse. rv 17:47 Kelly Alvarez FNP-C [facility]. kb 17:47 Ray Butler MD is Attending Physician. kb 17:49 Triage completed. rv 18:08 Patient has correct armband on for positive identification. Bed in low position. Call rv light in reach. Seizure precautions initiated. school bus monitor on. Pulse ox on. NIBP on. 18:20 Maintain EMS IV. Dressing intact. Good blood return noted. Site clean \T\ dry. Gauge \T\ rv site: G20 RIGHT FORE ARM, G20 LEFT AC. 20:35 No provider procedures requiring assistance completed. IV discontinued, intact, mg2 bleeding controlled, No redness/swelling at site. Pressure dressing applied. 20:36 Arm band placed on. mg2 Administered Medications: 17:53 Drug: NS 0.9% 1000 ml Route: IV; Rate: 1000 ml; Site: left antecubital; mg2 19:06 Follow up: IV Status: Completed infusion rv 19:07 Follow up: IV Intake: 1000ml rv 20:08 Follow up: Response: No adverse reaction; IV Status: Completed infusion; IV Intake: mg2 1000ml 19:06 Drug: Tylenol 1000 mg Route: PO; rv 20:08 Follow up: Response: No adverse reaction mg2 20:08 Drug: Potassium Chloride 20 mEq Route: PO; mg2 20:35 Follow up: Response: No adverse reaction mg2 Intake: 19:07 IV: 1000ml; Total: 1000ml. rv 20:08 IV: 1000ml; Total: 2000ml. mg2 Outcome: 20:28 Discharge ordered by . kb 20:35 Discharged to home via wheelchair, with family. mg2 20:35 Condition: stable 20:35 Discharge instructions given to patient, family, Instructed on discharge instructions, follow up and referral plans. medication usage, Demonstrated understanding of instructions, follow-up care, medications, Prescriptions given X 1. 20:36 Patient left the ED. mg2 Signatures: Kelly Alvarez FNP-C FNP-Ckb Dar Schwab, RN RN mg2 Selvin Muro, RN RN rv
--- NOTE | 2019-05-07 20:29 | EDPHYS ---
Physician Documentation [facility] Name: Cate Brown Age: 23 yrs Sex: Female : 1995 Arrival Date: 05/07/2019 Time: 17:45 Bed 26 Private MD: ED Physician Ray Butler HPI: 05/07 21:59 This 23 yrs old Female presents to ER via EMS with complaints of vomiting, kb . 21:59 The patient presents to the emergency department with nausea and vomiting, that started kb 4 day(s) ago. course: care: none. Previous pregnancies: in previous pregnancies patient has had. Associated signs and symptoms: Pertinent positives: nausea, vomiting. The patient has experienced similar episodes in the past. The patient has not recently seen a physician. Mother reports pt has had nausea and vomiting for 4 days, worse today. States she has had significant morning sickness with her previous pregnancies as well. Today she stood up and passed out.. Historical: - Allergies: 18:07 No Known Allergies; rv - Home Meds: 18:07 None [Active]; rv - PMHx: 18:07 Pancreatitis; rv - PSHx: 18:07 None; rv - Immunization history:: Adult Immunizations unknown. - Social history:: Smoking status: Patient/guardian denies using tobacco. - Ebola Screening: : No symptoms or risks identified at this time. ROS: 21:57 Constitutional: Negative for fever, chills, and weight loss, ENT: Negative for injury, kb pain, and discharge, Neck: Negative for injury, pain, and swelling, Cardiovascular: Negative for chest pain, palpitations, and edema, Respiratory: Negative for shortness of breath, cough, wheezing, and pleuritic chest pain, Back: Negative for injury and pain, : Negative for injury, bleeding, discharge, and swelling, MS/Extremity: Negative for injury and deformity, Skin: Negative for injury, rash, and discoloration. 21:57 Abdomen/GI: Positive for nausea and vomiting. 21:57 Neuro: Positive for syncope. Exam: 21:57 Constitutional: This is a well developed, well nourished patient who is awake, alert, kb and in no acute distress. Head/Face: Normocephalic, atraumatic. Eyes: Pupils equal round and reactive to light, extra-ocular motions intact. Lids and lashes normal. Conjunctiva and sclera are non-icteric and not injected. Cornea within normal limits. Periorbital areas with no swelling, redness, or edema. ENT: Nares patent. No nasal discharge, no septal abnormalities noted. Tympanic membranes are normal and external auditory canals are clear. Oropharynx with no redness, swelling, or masses, exudates, or evidence of obstruction, uvula midline. Mucous membranes moist. Neck: Trachea midline, no thyromegaly or masses palpated, and no cervical lymphadenopathy. Supple, full range of motion without nuchal rigidity, or vertebral point tenderness. No Meningismus. Chest/axilla: Normal chest wall appearance and motion. Nontender with no deformity. No lesions are appreciated. Cardiovascular: Regular rate and rhythm with a normal S1 and S2. No gallops, murmurs, or rubs. Normal PMI, no JVD. No pulse deficits. Respiratory: Lungs have equal breath sounds bilaterally, clear to auscultation and percussion. No rales, rhonchi or wheezes noted. No increased work of breathing, no retractions or nasal flaring. Abdomen/GI: Soft, non-tender, with normal bowel sounds. No distension or tympany. No guarding or rebound. No evidence of tenderness throughout. Skin: Warm, dry with normal turgor. Normal color with no rashes, no lesions, and no evidence of cellulitis. MS/ Extremity: Pulses equal, no cyanosis. Neurovascular intact. Full, normal range of motion. Neuro: Awake and alert, GCS 15, oriented to person, place, time, and situation. Cranial nerves II-XII grossly intact. Motor strength 5/5 in all extremities. Sensory grossly intact. Cerebellar exam normal. Normal gait. Vital Signs: 17:49 BP 116 / 67; Pulse 111; Resp 18; Temp 98.7; Pulse Ox 100% ; rv 20:09 BP 110 / 74; Pulse 110; Resp 18; Pulse Ox 98% on R/A; mg2 MDM: 17:47 Patient medically screened. kb 21:56 Data reviewed: vital signs, nurses notes. Data interpreted: Pulse oximetry: on room air kb is 98 %. Interpretation: normal. Counseling: I had a detailed discussion with the patient and/or guardian regarding: the historical points, exam findings, and any diagnostic results supporting the discharge/admit diagnosis, lab results, the need for outpatient follow up, an OB/Gyne specialist, to return to the emergency department if symptoms worsen or persist or if there are any questions or concerns that arise at home. 21:58 ED course: Pt was drowsy upon arrival, but woke up and answered questions when asked. kb Pt awake, alert, oriented and ambulatory upon discharge. . 05/07 17:48 Order name: Basic Metabolic Panel; Complete Time: 18:27 kb 05/07 17:48 Order name: CBC with Diff kb 05/07 17:48 Order name: Hepatic Function; Complete Time: 18:27 kb 05/07 17:48 Order name: Lipase; Complete Time: 18:27 kb 05/07 18:07 Order name: Glucose, Ancillary Testing; Complete Time: 18:09 EDMS 05/07 19:10 Order name: UDS; Complete Time: 19:56 kb 05/07 17:48 Order name: IV Saline Lock; Complete Time: 17:53 kb 05/07 17:48 Order name: Labs collected and sent; Complete Time: 17:53 kb 05/07 17:48 Order name: Urine Dipstick-Ancillary (obtain specimen); Complete Time: 20:02 kb 05/07 19:38 Order name: Urine Dipstick--Ancillary (enter results); Complete Time: 20:32 ar5 05/07 19:38 Order name: Urine --Ancillary (enter results); Complete Time: 20:32 ar5 05/07 17:48 Order name: FHT's; Complete Time: 18:20 kb Administered Medications: 17:53 Drug: NS 0.9% 1000 ml Route: IV; Rate: 1000 ml; Site: left antecubital; mg2 19:06 Follow up: IV Status: Completed infusion rv 19:07 Follow up: IV Intake: 1000ml rv 20:08 Follow up: Response: No adverse reaction; IV Status: Completed infusion; IV Intake: mg2 1000ml 19:06 Drug: Tylenol 1000 mg Route: PO; rv 20:08 Follow up: Response: No adverse reaction mg2 20:08 Drug: Potassium Chloride 20 mEq Route: PO; mg2 20:35 Follow up: Response: No adverse reaction mg2 Disposition: 05/07/19 20:28 Discharged to Home. Impression: Nausea and vomiting. - Condition is Stable. - Discharge Instructions: Morning Sickness, [id number], Nausea and Vomiting, Adult, [id number]. - Prescriptions for Diclegis 10- 10 mg Oral tablet,delayed release (DR/EC) - take 1 tablet by ORAL route once daily; 10 tablet. - Medication Reconciliation Form, Thank You Letter, Antibiotic Education, Prescription Opioid Use form. - Follow up: Emergency Department; When: As needed; Reason: Worsening of condition. Follow up: Private Physician; When: 2 - 3 days; Reason: Recheck today's complaints, Continuance of care, Re-evaluation by your physician. Addendum: 05/14/2019 10:47 Co-signature as Attending Physician, Ray Butler MD I agree with the assessment and c teran plan of care. Signatures: Dispatcher [employer] EDMS Kelly Alvarez, COIL WINDING SUPERVISOR-C COIL WINDING SUPERVISOR-Ray Jimenez MD MD cha Gardose, Michele, RN RN mg2 Selvin Muro RN RN rv Corrections: (The following items were deleted from the chart) 05/07 20:36 20:28 05/07/2019 20:28 Discharged to Home. Impression: Nausea and vomiting. Condition mg2 is Stable. Forms are Medication Reconciliation Form, Thank You Letter, Antibiotic Education, Prescription Opioid Use. Follow up: Emergency Department; When: As needed; Reason: Worsening of condition. Follow up: Private Physician; When: 2 - 3 days; Reason: Recheck today's complaints, Continuance of care, Re-evaluation by your physician. kb
[2019-05-07 20:30] LABS: Urine Blood TRACE (NEG); Urine Glucose NEGATIVE (NEG); Urine Protein NEGATIVE (NEG); Urine pH 5.5 (5.0-7.0)
[2019-05-07 20:36] LABS: Blood Morphology Comment NOT SEEN (NOT SEEN); Platelet Estimate ADEQ; Urine White Blood Cell Casts OK
[2019-05-07 22:48] VITALS: TEMP 98.7
[2019-05-07 22:49] VITALS: BP 110/74; O2SAT 98
== END 2019-05-07 20:36 | disposition home or self-care (01) ==
LOC: ER 17:43
DX: O21.9 Vomiting of pregnancy, unspecified (principal); Z3A.00 Weeks of gestation of pregnancy not specified
CPT/HCPCS: 85025; 80048; 36415; 81025; 82947; 80076; 80307 ×8; 81003; 83690; 96360; 99284; J7030

== ENCOUNTER 2019-10-15 02:28 | Inpatient (IN) | payer OTHER ==
[2019-10-15] MEDS ORDERED: METHYLERGONOVINE 0.2MG/ML AMP IM PRN (04:10)
[2019-10-15] MEDS ORDERED: PROMETHAZINE INJ 25 MG/ML AMP IM PRN (04:10)
[2019-10-15] MEDS ORDERED: Ringers Lactate 1,000 ML IV PRN (04:10)
[2019-10-15] MEDS ORDERED: BUTORPHANOL 1 MG/ML INJ IV PRN (04:10)
[2019-10-15 04:21] LABS: Urine Appearance CLEAR; Urine Bilirubin NEGATIVE (NEG); Urine Blood NEGATIVE (NEG); Urine Color YELLOW; Urine Glucose NEGATIVE (NEG); Urine Protein NEGATIVE (NEG)
[2019-10-15 04:22] LABS: Urine Microscopic Reflex NO UMIC
[2019-10-15 04:28] LABS: Absolute Lymphocytes (CBC) 2.5 K/uL (0.7-4.9); Basophils % 0.3 % (0-1.3); Hematocrit 34.7 % (36.0-45.0); Lymphocytes % 26.5 % (15.3-44.8); RBC Red Blood Cell Count 3.88 M/uL (3.86-4.86)
[2019-10-15 04:43] VITALS: BMI 41.3
[2019-10-15] MEDS ORDERED: Ringers Lactate 1,000 ML IV SCH (05:00)
[2019-10-15] MEDS ORDERED: LIDOCAINE 1% MPF 30 ML VIAL SQ ONE (05:07)
--- NOTE | 2019-10-15 05:54 | PREOPHP ---
Date of Admission: 10/15/2019 A 24-year-old 7, para 3, 36 weeks 6 days. She came in lauren regularly. I was told by the nurse who examined her that she is 3.5 to 4, then had progressed over the period of observation t o 5. Last report, the patient was 6 to 7. My exam shows the patient is 4 to 4.5. The baby is still -2 to -3 station. She is lauren regularly. She is in labor but not as far dilated. We will s tart some Pitocin augmentation. She is beta strep negative. Her plan is to go natural childbirth. Full labor talk. ATA/PIOTR Voice ID: [id number]
[2019-10-15] MEDS ORDERED: OXYTOCIN/LR 20 UNIT/1,000 ML BAG IV SCH ×2 (06:00→09:00)
--- NOTE | 2019-10-15 07:54 | PN ---
24-year-old 7, para 3, 36 weeks and 6 days according to best estimates, came in according to nurse active labor. Went from 3 cm with the observation to 5 cm, and was admitted at that time. I w as told before I came to the hospital, patient was 6.5 to 7 cm, but on my exam, patient was 4.5 cm, 5 0% effaced, vertex, still -2 to -3 station. Light Pitocin has been started. Baby is now down at -1 station, 5 cm, 70% to 80% effaced, rupture of membranes, clear fluid. A good bloody show was noted b ut the fluid was clear. Baby looks good on the monitor. Anticipate more rapid progress from this po int forward. ATA/PIOTR Voice ID: [id number] Report ID: [id number]
[2019-10-15] MEDS ORDERED: CARBOPROST TROME 250 MCG/ML IM ONE (08:07)
[2019-10-15] MEDS ORDERED: DOCUSATE NA/SENNA CONC 1 TAB PO PRN (08:17)
[2019-10-15] MEDS ORDERED: ACETAMINOPHEN 500 MG TAB PO PRN (08:17)
[2019-10-15] MEDS ORDERED: BISACODYL 10 MG RECTAL SUPP RC PRN (08:17)
[2019-10-15] MEDS ORDERED: Oxycodone HCl/Acetaminophen 1 TAB TAB PO PRN (08:17)
[2019-10-15] MEDS ORDERED: IBUPROFEN 600 MG TAB PO PRN (08:17)
[2019-10-15] MEDS ORDERED: DIPHENHYDRAMINE 25 MG TAB/CAP PO PRN (08:17)
--- NOTE | 2019-10-15 10:05 | OP ---
Surgeon: Gabino Dan MD 24-year-old 7, para 3, followed antepartum without complications. Rh positive, immune to Rub kevin. Negative beta strep screen. Is admitted to Labor and Delivery after showing regular uterine c ontractions and cervical change, was 5 cm when first examined by myself, rupture of membranes, bloody show, but clear fluid. Patient had 1 mg of Stadol shortly after, went rapidly to complete. Second stage consisted of 1 series of pushes, delivery of a 7-pound plus or minus female, Apgars 9 and 9. N o episiotomy. No laceration. Schultze delivery of the placenta, which was inspected and noted to be intact and normal. Less than 300 cc blood loss. Final Diagnoses: Intrauterine gestation, 36 weeks 6 days, spontaneous labor, vaginal delivery, beta strep negative. ATA/PIOTR Voice ID: [id number] Report ID: [id number]
[2019-10-15] MEDS: Oxycodone HCl/Acetaminophen 1 TAB TAB PO PRN (20:35)
[2019-10-16] MEDS: Oxycodone HCl/Acetaminophen 1 TAB TAB PO PRN ×2 (01:25→06:10)
[2019-10-16 01:28] LABS: RPR (Rapid Plasma Reagin) NON-REACT (NON-REACT)
[2019-10-16] MEDS ORDERED: Ringers Lactate 1,000 ML IV ONE (07:07)
[2019-10-16 07:29] VITALS: BP 111/69; TEMP 97.2
--- NOTE | 2019-10-16 10:07 | DS ---
Hospital Course: This is a 24-year-old, 7, para 3, at 36 weeks and 6 days, came in early lab or. Subsequently, delivered of an estimated 7-pound female, Apgars 9 and 9. No episiotomy. No lace rations. Schultze delivery of the placenta, which was inspected and noted to be intact and normal. 300 mL or less blood loss. The patient had Stadol 1 mg IV during the labor, otherwise natural childb irth. ; afebrile, ambulating and voiding. Lochia is normal. Requests Tramadol for analge tin. She knows this goes through the breast milk. She has been thinking about a tubal sterilization , which she will have at [facility] after her 6-week checkup, but now is not so sure and we discussed other forms of control such as a ParaGard, which lasts 10 years. She will decide in the interim. Final Diagnoses: Intrauterine gestation, 36 weeks 6 days, vaginal delivery. ATA/PIOTR Voice ID: [id number] Report ID: [id number]
[2019-10-17 17:43] LABS: HBsAG Nonreactive (Nonreactive)
== END 2019-10-16 10:25 | disposition home or self-care (01) | DRG 807 ==
LOC: L&D 02:28 → 2ND-WCNRSY 04:01 → UNDOADMIN 04:01 → 2ND-WC 04:10
PROVIDERS: ADMIT Specialist; ATTEND Specialist
PROC: 10E0XZZ Delivery of Products of Conception, External Approach (ICD-10-PCS; principal; 2019-10-15)
PROC: 10907ZC Drainage of Amniotic Fluid, Therapeutic from Products of Conception, Via Natural or Artificial Opening (ICD-10-PCS; 2019-10-15)
PROC: 3E033VJ Introduction of Other Hormone into Peripheral Vein, Percutaneous Approach (ICD-10-PCS; 2019-10-15)
DX: O80 Encounter for full-term uncomplicated delivery (principal); Z37.0 Single live birth; Z3A.36 36 weeks gestation of pregnancy
CPT/HCPCS: 36415; 81003; 85025; 86592; 86850; 86900; 86901; 87340; J0595; J2210; J2550; J2590; J7120

== ENCOUNTER 2020-07-17 07:39 | Emergency (ER) | payer OTHER ==
--- OUTSIDE RECORDS SUMMARY | 2020-07-17 07:42 | XMS REPORT | Continuity of Care Document ---
:1995 Author Organization [facility] t Address [address] [place] [address] Care Team Providers Name Role Phone Kelli Carter NP Attending Clinician Problems This patient has no known problems. Allergies, Adverse Reactions, Alerts This patient has no known allergies or adverse reactions. Medications This patient has no known medications. Procedures This patient has no known procedures. Encounters Start End Encounter Admission Attending Care Care Encounter Source Date/Time Date/Time Type Type Clinicians Facility Department ID 2020-02-11 2020-02-12 [facility] [id number] 23:02:00 01:52:00 Julia Upton [id number] [place] [id number] [place] [id number] Results This patient has no known results.
--- NOTE | 2020-07-17 08:26 | RAD REPORT ---
EXAM DESCRIPTION: RAD - Chest Single View - 07/17/2020 8:16 am CLINICAL HISTORY: COUGH, headache, shortness of breath COMPARISON: September 2014 TECHNIQUE: AP portable chest image was obtained 07/17/2020 8:16 am . FINDINGS: Lungs are clear. Heart and vasculature are normal. No measurable pleural effusion and no p neumothorax. No acute bony abnormality seen. No acute aortic findings suspected. IMPRESSION: No acute cardiopulmonary process. No significant change from comparison study.
[2020-07-17] MEDS ORDERED: ACETAMINOPHEN 500 MG TAB ONE (09:19)
[2020-07-17 09:26] LABS: SARS-COV-2 RT PCR NEGATIVE (NEGATIVE)
--- NOTE | 2020-07-17 09:42 | EDPHYS ---
Physician Documentation [facility] Name: Cate Brown Age: 25 yrs Sex: Female : 1995 Arrival Date: 07/17/2020 Time: 07:42 Bed 4 Private MD: ED Physician Ray Butler HPI: 07/17 08:29 This 25 yrs old Female presents to ER via Ambulatory with complaints of Cough, michael Congestion. 08:29 The patient or guardian reports cough, described as mild. Onset: The symptoms/episode michael began/occurred 3 day(s) ago. Severity of symptoms: At their worst the symptoms were mild, in the emergency department the symptoms are unchanged. 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 - Social history:: Smoking status: Patient denies any tobacco usage or history of. ROS: 08:30 Constitutional: Negative for fever, chills, and weight loss, Eyes: Negative for injury, michael pain, redness, and discharge, Neck: Negative for injury, pain, and swelling, Cardiovascular: Negative for chest pain, palpitations, and edema, Respiratory: Negative for shortness of breath, cough, wheezing, and pleuritic chest pain, Abdomen/GI: Negative for abdominal pain, nausea, vomiting, diarrhea, and constipation, Back: Negative for injury and pain, : Negative for injury, bleeding, discharge, and swelling, MS/Extremity: Negative for injury and deformity, Skin: Negative for injury, rash, and discoloration, Neuro: Negative for headache, weakness, numbness, tingling, and seizure, Psych: Negative for depression, anxiety, suicide ideation, homicidal ideation, and hallucinations, Allergy/Immunology: Negative for hives, rash, and allergies, Endocrine: Negative for neck swelling, polydipsia, polyuria, polyphagia, and marked weight changes, Hematologic/Lymphatic: Negative for swollen nodes, abnormal bleeding, and unusual bruising. 08:30 ENT: Positive for nasal discharge, rhinorrhea. Exam: 08:30 Constitutional: This is a well developed, well nourished patient who is awake, alert, michael and in no acute distress. Head/Face: Normocephalic, atraumatic. Eyes: Pupils equal round and reactive to light, extra-ocular motions intact. Lids and lashes normal. Conjunctiva and sclera are non-icteric and not injected. Cornea within normal limits. Periorbital areas with no swelling, redness, or edema. ENT: Nares patent. No nasal discharge, no septal abnormalities noted. Tympanic membranes are normal and external auditory canals are clear. Oropharynx with no redness, swelling, or masses, exudates, or evidence of obstruction, uvula midline. Mucous membranes moist. Neck: Trachea midline, no thyromegaly or masses palpated, and no cervical lymphadenopathy. Supple, full range of motion without nuchal rigidity, or vertebral point tenderness. No Meningismus. Chest/axilla: Normal chest wall appearance and motion. Nontender with no deformity. No lesions are appreciated. Cardiovascular: Regular rate and rhythm with a normal S1 and S2. No gallops, murmurs, or rubs. Normal PMI, no JVD. No pulse deficits. Abdomen/GI: Soft, non-tender, with normal bowel sounds. No distension or tympany. No guarding or rebound. No evidence of tenderness throughout. Back: No spinal tenderness. No costovertebral tenderness. Full range of motion. Skin: Warm, dry with normal turgor. Normal color with no rashes, no lesions, and no evidence of cellulitis. MS/ Extremity: Pulses equal, no cyanosis. Neurovascular intact. Full, normal range of motion. Neuro: Awake and alert, GCS 15, oriented to person, place, time, and situation. Cranial nerves II-XII grossly intact. Motor strength 5/5 in all extremities. Sensory grossly intact. Cerebellar exam normal. Normal gait. Psych: Awake, alert, with orientation to person, place and time. Behavior, mood, and affect are within normal limits. 08:30 Respiratory: the patient does not display signs of respiratory distress, Respirations: normal, Breath sounds: are clear throughout, no acute changes, throughout. 08:30 Musculoskeletal/extremity: DVT Exam: No signs of deep vein thrombosis. no pain, no swelling, no tenderness, negative Homans' sign noted on exam, no appreciated bluish discoloration, no erythema, no increased warmth. Vital Signs: 07:47 BP 122 / 89; Pulse 101; Resp 20 S; Temp 99.0(O); Pulse Ox 98% on R/A; Weight 89.81 kg aa5 (R); Height 4 ft. 11 in. (149.86 cm) (R); Pain 8/10; 09:09 BP 127 / 82; Pulse 100; Resp 18 S; Pulse Ox 96% on R/A; jd3 10:20 BP 135 / 59; Pulse 65; Resp 17 S; Pulse Ox 97% on R/A; jd3 07:47 Body Mass Index 39.99 (89.81 kg, 149.86 cm) aa5 MDM: 07:48 Patient medically screened. [facility] 08:31 Differential diagnosis: bronchitis. Antibiotic administration: Not indicated. [facility] Differential Diagnosis: Bronchitis Influenza Upper Respiratory Infection Sinusitis. Data reviewed: vital signs, nurses notes, lab test result(s), radiologic studies, plain films. Data interpreted: transfer agent: rate is 101 beats/min, Pulse oximetry: on room air is 98 %. Test interpretation: by ED physician or midlevel provider: plain radiologic studies. Counseling: I had a detailed discussion with the patient and/or guardian regarding: the historical points, exam findings, and any diagnostic results supporting the discharge/admit diagnosis, lab results, radiology results, the need for outpatient follow up. 07/17 07:55 Order name: COVID-19 : Document "Date of Symptom Onset" if Symptomatic. [facility] 07/17 07:55 Order name: Flu [facility] 07/17 07:55 Order name: Chest Single View XRAY [facility] 07/17 08:44 Order name: [facility] 07/17 08:44 Order name: Influenza Screen (A [facility] 07/17 09:26 Order name: COVID-19/FLU A+B; Complete Time: 09:36 [facility] 07/17 08:26 Order name: RAD; Complete Time: 08:29 [facility] 07/17 09:00 Order name: PO challenge; Complete Time: 09:02 michael Administered Medications: 09:04 Drug: Tylenol 1000 mg Route: PO; jd3 10:00 Follow up: Response: No adverse reaction jd3 10:18 Drug: Zithromax 500 mg Route: PO; jd3 10:20 Follow up: Response: Medication administered at discharge. jd3 10:19 Drug: predniSONE 40 mg Route: PO; jd3 10:20 Follow up: Response: Medication administered at discharge. jd3 Disposition: 07/17/20 09:41 Discharged to Home. Impression: Acute upper respiratory infection, unspecified. - Condition is Stable. - Discharge Instructions: Upper Respiratory Infection, Adult, Cool Mist Vaporizer, Upper Respiratory Infection, Adult, Ruyy-ah-Jgon. - Prescriptions for Paulina- D 12 Hour 60-120 mg Oral Tablet Sustained Release 12 hr - take 1 tablet by ORAL route every 12 hours As needed; 20 tablet. Zithromax Z- Stan 250 mg Oral Tablet - take 1 tablet by ORAL route as directed for 5 days Day 1 - take two (2) tablets one time. Day 2, 3, 4 , 5 take one (1) tablet once daily.; 6 tablet. Medrol (Stan) 4 mg Oral Tablets, Dose Pack - take 1 tablet by ORAL route as directed - follow package instructions; 1 packet. - Medication Reconciliation Form, Thank You Letter, Antibiotic Education, Prescription Opioid Use, Work release form form. - Follow up: Private Physician; When: 2 - 3 days; Reason: Recheck today's complaints, Continuance of care, Re-evaluation by your physician. - Problem is new. - Symptoms have improved. Signatures: Dispatcher [employer] EDRay Mcgowan MD MD cha Calderon, Audri, RN RN aa5 Moshe Egan RN RN jd3 Corrections: (The following items were deleted from the chart) 10: 09:41 07/17/2020 09:41 Discharged to Home. Impression: Acute upper respiratory jd3 infection, unspecified. Condition is Stable. Forms are Medication Reconciliation Form, Thank You Letter, Antibiotic Education, Prescription Opioid Use. Follow up: Private Physician; When: 2 - 3 days; Reason: Recheck today's complaints, Continuance of care, Re-evaluation by your physician. Problem is new. Symptoms have improved. michael
--- NOTE | 2020-07-17 09:42 | ER ---
Nurse's Notes [facility] Name: Cate Brown Age: 25 yrs Sex: Female : 1995 Arrival Date: 07/17/2020 Time: 07:42 Bed 4 Private MD: Diagnosis: Acute upper respiratory infection, unspecified Presentation: 07/17 07:47 Chief complaint: Patient states: cough, nasal congestion, headache, and SOB x 2 days aa5 ago. 07:47 Coronavirus screen: cough unrelated to allergies, headache, shortness of breath, Client aa5 presents with at least one sign or symptom that may indicate coronavirus-19. Standard/surgical mask placed on the client. Provider contacted for isolation considerations. Ebola Screen: Patient negative for fever greater than or equal to 101.5 degrees Fahrenheit, and additional compatible Ebola Virus Disease symptoms. Initial Sepsis Screen: Does the patient meet any 2 criteria? HR > 90 bpm. Does the patient have a suspected source of infection? Yes:. Risk Assessment: Do you want to hurt yourself or someone else? Patient reports no desire to harm self or others. Onset of symptoms was July 2020. 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 - Social history:: Smoking status: Patient denies any tobacco usage or history of. Screenin:15 Abuse screen: Denies threats or abuse. Nutritional screening: No deficits noted. jd3 Tuberculosis screening: No symptoms or risk factors identified. Fall Risk Ambulatory Aid- None/Bed Rest/Nurse Assist (0 pts). Gait- Normal/Bed Rest/Wheelchair (0 pts) Mental Status- Oriented to own ability (0 pts). Total Abdi Fall Scale indicates No Risk (0-24 pts). Assessment: 08:13 General: Appears in no apparent distress. comfortable, Behavior is calm, cooperative, jd3 appropriate for age. Pain: Denies pain. Neuro: Level of Consciousness is awake, alert, obeys commands, Oriented to person, place, time, situation. Cardiovascular: Denies chest pain, Heart tones present Capillary refill < 3 seconds Patient's skin is warm and dry. Respiratory: Reports shortness of breath cough that is persistent Airway is patent Respiratory effort is even, unlabored, Respiratory pattern is regular, symmetrical, Breath sounds are clear bilaterally. GI: No signs and/or symptoms were reported involving the gastrointestinal system. : No signs and/or symptoms were reported regarding the genitourinary system. EENT: No signs and/or symptoms were reported regarding the EENT system. Derm: Skin is intact, Skin is dry, Skin is normal, Skin temperature is warm. Musculoskeletal: Circulation, motion, and sensation intact. Range of motion: intact in all extremities. 09:09 Reassessment: Patient appears in no apparent distress at this time. Patient and/or jd3 family updated on plan of care and expected duration. Pain level reassessed. Patient is alert, oriented x 3, equal unlabored respirations, skin warm/dry/pink. medicated for headache. pt tolerating PO fluids. 10:20 Reassessment: Patient appears in no apparent distress at this time. Patient and/or jd3 family updated on plan of care and expected duration. Pain level reassessed. Patient is alert, oriented x 3, equal unlabored respirations, skin warm/dry/pink. Patient states feeling better. Vital Signs: 07:47 BP 122 / 89; Pulse 101; Resp 20 S; Temp 99.0(O); Pulse Ox 98% on R/A; Weight 89.81 kg aa5 (R); Height 4 ft. 11 in. (149.86 cm) (R); Pain 8/10; 09:09 BP 127 / 82; Pulse 100; Resp 18 S; Pulse Ox 96% on R/A; jd3 10:20 BP 135 / 59; Pulse 65; Resp 17 S; Pulse Ox 97% on R/A; jd3 07:47 Body Mass Index 39.99 (89.81 kg, 149.86 cm) aa5 ED Course: 07:42 Patient arrived in ED. am2 07:47 Arm band placed on. aa5 07:48 Ray Butler MD is Attending Physician. michael 07:53 Moshe Egan RN is Primary Nurse. jd3 07:54 Triage completed. aa5 08:15 Patient has correct armband on for positive identification. Bed in low position. Call jd3 light in reach. Side rails up X 1. Pulse ox on. NIBP on. 10:21 No provider procedures requiring assistance completed. Patient did not have IV access jd3 during this emergency room visit. Administered Medications: 09:04 Drug: Tylenol 1000 mg Route: PO; jd3 10:00 Follow up: Response: No adverse reaction jd3 10:18 Drug: Zithromax 500 mg Route: PO; jd3 10:20 Follow up: Response: Medication administered at discharge. jd3 10:19 Drug: predniSONE 40 mg Route: PO; jd3 10:20 Follow up: Response: Medication administered at discharge. jd3 Outcome: :41 Discharge ordered by . michael 10:21 Discharged to home ambulatory. jd3 10:21 Condition: stable 10:21 Discharge instructions given to patient, Instructed on discharge instructions, follow up and referral plans. medication usage, Demonstrated understanding of instructions, follow-up care, medications, Prescriptions given X 3. 10:21 Patient left the ED. jd3 Signatures: Ray Butler MD MD cha Calderon, Audri, RN RN aa5 Inna Gil Jonathon, RN RN jd3
[2020-07-17 10:26] VITALS: TEMP 99
[2020-07-17 10:28] VITALS: BP 135/59; O2SAT 97
[2020-07-17] MEDS ORDERED: AZITHROMYCIN 250 MG TAB ONE (10:30)
[2020-07-17] MEDS ORDERED: predniSONE 20 MG TAB ONE (10:30)
== END 2020-07-17 10:21 | disposition home or self-care (01) ==
LOC: ER 07:39
DX: J06.9 Acute upper respiratory infection, unspecified (principal); Z20.822 Contact with and (suspected) exposure to COVID-19
CPT/HCPCS: 0240U; 71045; J7512; 99283

== ENCOUNTER 2022-12-05 20:38 | Emergency (ER) | payer OTHER ==
--- OUTSIDE RECORDS SUMMARY | 2022-12-05 20:42 | XMS REPORT | Continuity of Care Document ---
:1995 Author Organization [facility] t Address [address] [facility] [address] [place] [id number] Care Team Providers Name Role Phone Cindy Suero Primary Care Physician Cleo Edgar Attending Clinician CLEO FAN Attending Clinician Unavailable Unknown, Attending Attending Clinician Unavailable Georgette Farris Attending Clinician GEORGETTE GORDON Attending Clinician Unavailable Doctor Unassigned, [place] Attending Clinician Unavailable BRIAN PHILIP Attending Clinician Unavailable Brian Philip MD Attending Clinician Kathy Lovell RN Attending Clinician Unavailable ZAHIRA LAI Attending Clinician Unavailable Julia Carter NP Attending Clinician Payers Payer Name Policy Type Policy Number Effective Date Expiration Date S ource Problems Condition Condition Condition Status Onset Resolution Last Treating Co mments Source Name Details Category Date Date Treatment Clinician Date No known No known Disease Unive rs active active ity of problems problems [facility] Allergies, Adverse Reactions, Alerts Allergy Allergy Status Severity Reaction(s) Onset Inactive Treating Comm ents Source Name Type Date Date Clinician NO KNOWN Drug Active Univers ALLERGIE Class ity of S [facility] Social History Social Habit Start Date Stop Date Quantity Comments Source Exposure to 2022-04-06 2022-04-16 Not sure [facility] SARS-CoV-2 00:00:00 09:07:00 [facility] (event) [place] Alcohol intake 2022-04-16 2022-04-16 [facility] of 00:00:00 00:00:00 non-drinker [facility] (finding) [place] Tobacco use and 2021-07-25 2021-07-25 Smokeless tobacco Un iversity of exposure 00:00:00 00:00:00 non-user [facility] Sex Ass[birth year] At [birth year] Universit y of 00:00:00 00:00:00 [facility] Smoking Status Start Date Stop Date Source Never smoked tobacco [facility] Medications Ordered Filled Start Stop Current Ordering Indication Dosage Frequency Signature Comments Components Source Medication Medication Date Date Medication? Clinician (SIG) Name Name methylPREDN 2021-05 Yes [id number] Take by Univers ISolone 4 2-09 mouth ity of mg tablets 00:00: [place]-INSTRU [place] 00 CTIONS. Medical follow Branch package directions albuterol 2021-05 Yes [id number] 2{puff} Inhale 2 Univers 90 2-09 Puffs ity of mcg/actuati 00:00: every 6 [place] on inhaler 00 (six) Medical hours as Branch needed for Bronchospa sm or Wheezing. fluticasone 2021-05 Yes [id number] 2{spray Use 2 Univers propionate 2-09 } Sprays in ity of 50 00:00: each [place] mcg/actuati 00 nostril in Me dical on nasal the Branch spray morning. bromphenira 2021-05 Yes [id number] 5mL Take 5 mL Univers mine-pseudo 2-09 by mouth 4 it y of ephedrine-D 00:00: (four[place] (BROMFED 00 times Medical DM) 2-30-10 daily as Bran ch mg/5 mL needed for syrup Congestion /Allergies or Cough. methylPREDN 2021-05 Yes [id number] Take by Univers ISolone 4 2-09 mouth ity of mg tablets 00:00: SEE-INSTRU [place] 00 CTIONS. Medical follow Branch package directions albuterol 2021-05 Yes [id number] 2{puff} Inhale 2 Univers 90 2-09 Puffs ity of mcg/actuati 00:00: every 6 [place] on inhaler 00 (six) Medical hours as Branch needed for Bronchospa sm or Wheezing. fluticasone 2021-05 Yes [id number] 2{spray Use 2 Univers propionate 2-09 } Sprays in ity of 50 00:00: each [place] mcg/actuati 00 nostril in Ms dical on nasal the Branch spray morning. bromphenira 2021-05 Yes [id number] 5mL Take 5 mL Univers mine-pseudo 2-09 by mouth 4 it y of ephedrine-D 00:00: (four[place] (BROMFED 00 times Medical DM) 2-30-10 daily as Bran ch mg/5 mL needed for syrup Congestion /Allergies or Cough. nirmatrelvi 2021-05 Yes [id number] 3{tbl} Take 3 Univers r-ritonavir 2-02 tablets by it y of (PAXLOVID, 00:00: mouth in [place] EUA,) 300 00 the Medical mg (150 mg morning Branch x 2)-100 mg and 3 tablet tablets in the evening. nirmatrelvi 2021-05 [id number] 3{tbl} Take 3 Univers r-ritonavir 2-02 12-09 tablets by i ty of (PAXLOVID, 00:00: 00:00 [place] in [place] EUA,) 300 00 :00 the Medical mg (150 mg morning Branch x 2)-100 mg and 3 tablet tablets in the evening. ondansetron Yes [id number] 4mg Take 1 Univers 4 mg 3-19 tablet by ity of disintegrat 00:00: mouth [place] ing tablet 00 every 8 Medica l (eight) Branch hours as needed for Nausea and Vomiting (N/V). oseltamivir Yes [id number] 75mg Take 1 Univers (TAMIFLU) 3-19 capsule by ity of 75 mg 00:00: mouth 2 [place] capsule 00 (two) Medical times Branch daily. ondansetron Yes [id number] 4mg Take 1 Univers 4 mg 3-19 tablet by ity of disintegrat 00:00: mouth [place] ing tablet 00 every 8 Medica l (eight) Branch hours as needed for Nausea and Vomiting (N/V). oseltamivir 2022-0 Yes [id number] 75mg Take 1 Univers (TAMIFLU) 3-19 capsule by ity of 75 mg 00:00: mouth 2 [place] capsule 00 (two) Medical times Branch daily. ondansetron 2022-0 Yes [id number] 4mg Take 1 Univers 4 mg 3-19 tablet by ity of disintegrat 00:00: mouth [place] ing tablet 00 every 8 Medica l (eight) Branch hours as needed for Nausea and Vomiting (N/V). oseltamivir 2022-0 Yes [id number] 75mg Take 1 Univers (TAMIFLU) 3-19 capsule by ity of 75 mg 00:00: mouth 2 [place] capsule 00 (two) Medical times Branch daily. ondansetron 2022-0 Yes [id number] 4mg Take 1 Univers 4 mg 3-19 tablet by ity of disintegrat 00:00: mouth [place] ing tablet 00 every 8 Medica l (eight) Branch hours as needed for Nausea and Vomiting (N/V). oseltamivir 2022-0 Yes [id number] 75mg Take 1 Univers (TAMIFLU) 3-19 capsule by ity of 75 mg 00:00: mouth 2 [place] capsule 00 (two) Medical times Branch daily. ondansetron 2022-0 Yes [id number] 4mg Take 1 Univers 4 mg 3-19 tablet by ity of disintegrat 00:00: mouth [place] ing tablet 00 every 8 Medica l (eight) Branch hours as needed for Nausea and Vomiting (N/V). oseltamivir 2022-0 Yes [id number] 75mg Take 1 Univers (TAMIFLU) 3-19 capsule by ity of 75 mg 00:00: mouth 2 [place] capsule 00 (two) Medical times Branch daily. ondansetron 2022-0 Yes [id number] 4mg Take 1 Univers 4 mg 3-19 tablet by ity of disintegrat 00:00: mouth [place] ing tablet 00 every 8 Medica l (eight) Branch hours as needed for Nausea and Vomiting (N/V). oseltamivir 2022-0 Yes [id number] 75mg Take 1 Univers (TAMIFLU) 3-19 capsule by ity of 75 mg 00:00: mouth 2 [place] capsule 00 (two) Medical times Branch daily. acetaminoph 2020-1 Yes [id number] 1{tbl} Take 1 [place] en-codeine 0-06 tablet by ity of (TYLENOL-CO 00:00: mouth [place] DEINE #3) 00 every 4 Medical 300-30 mg (four) Branch tablet hours as needed for Pain (scale 7-10). Indication s: acute pain acetaminoph 2020-1 Yes [id number] 1{tbl} Take 1 [place] en-codeine 0-06 tablet by ity of (TYLENOL-CO 00:00: mouth [place] DEINE #3) 00 every 4 Medical 300-30 mg (four) Branch tablet hours as needed for Pain (scale 7-10). Indication s: acute pain acetaminoph 2020-1 Yes [id number] 1{tbl} Take 1 [place] en-codeine 0-06 tablet by ity of (TYLENOL-CO 00:00: mouth [place] DEINE #3) 00 every 4 Medical 300-30 mg (four) Branch tablet hours as needed for Pain (scale 7-10). Indication s: acute pain acetaminoph 2020-1 Yes [id number] 1{tbl} Take 1 [place] en-codeine 0-06 tablet by ity of (TYLENOL-CO 00:00: mouth [place] DEINE #3) 00 every 4 Medical 300-30 mg (four) Branch tablet hours as needed for Pain (scale 7-10). Indication s: acute pain acetaminoph 2020-1 Yes [id number] 1{tbl} Take 1 [place] en-codeine 0-06 tablet by ity of (TYLENOL-CO 00:00: mouth [place] DEINE #3) 00 every 4 Medical 300-30 mg (four) Branch tablet hours as needed for Pain (scale 7-10). Indication s: acute pain acetaminoph 2020-1 Yes [id number] 1{tbl} Take 1 [place] en-codeine 0-06 tablet by ity of (TYLENOL-CO 00:00: mouth [place] DEINE #3) 00 every 4 Medical 300-30 mg (four) Branch tablet hours as needed for Pain (scale 7-10). Indication s: acute pain albuterol 2016-0 Yes 2.5mg Inhale 3 Uni vers (PROVENTIL) 8-01 mL every 4 it y of 2.5 mg /3 00:00: (four) [place] mL (0.083 00 hours. May Medi anna %) also Branch nebulizer nebulize solution one extra every 6 hours. albuterol 0 Yes 2.5mg Inhale 3 Uni vers (PROVENTIL) 8-01 mL every 4 it y of 2.5 mg /3 00:00: (four) [place] mL (0.083 00 hours. May Medi anna %) also Branch nebulizer nebulize solution one extra every 6 hours. albuterol 0 Yes 2.5mg Inhale 3 Uni vers (PROVENTIL) 8-01 mL every 4 it y of 2.5 mg /3 00:00: (four) [place] mL (0.083 00 hours. May Medi anna %) also Branch nebulizer nebulize solution one extra every 6 hours. predniSONE Yes 1 tab PO Uni vers (DELTASONE) 8-01 BID x 4 ity o f 20 mg 00:00: days [place] tablet 00 Medical Branch benzonatate Yes 100mg Take 1 Uni vers (TESSALON 8-01 capsule by [employer] of [email or web address]) 100 00:00: mouth 3 [place] mg capsule 00 (three) Medica l times Branch daily as needed for Cough. albuterol Yes 2.5mg Inhale 3 Uni vers (PROVENTIL) 8-01 mL every 4 it y of 2.5 mg /3 00:00: (four) [place] mL (0.083 00 hours. May Medi anna %) also Branch nebulizer nebulize solution one extra every 6 hours. predniSONE 0 Yes 1 tab PO Uni vers (DELTASONE) 8-01 BID x 4 ity o f 20 mg 00:00: days [place] tablet 00 Medical Branch benzonatate 0 Yes 100mg Take 1 Uni vers (TESSALON 8-01 capsule by ity of [email or web address]) 100 00:00: mouth 3 [place] mg capsule 00 (three) Medica l times Branch daily as needed for Cough. albuterol 0 Yes 2.5mg Inhale 3 Uni vers (PROVENTIL) 8-01 mL every 4 it y of 2.5 mg /3 00:00: (four) [place] mL (0.083 00 hours. May Medi anna %) also Branch nebulizer nebulize solution one extra every 6 hours. predniSONE Yes 1 tab PO Uni vers (DELTASONE) 8 BID x 4 ity o f 20 mg 00:00: days [place] tablet 00 Medical Branch benzonatate Yes 100mg Take 1 Uni vers (TESSALON 12-07 capsule by itmariam Joox PALLAVI) 100 00:00: mouth 3 [place] mg capsule 00 (three) Medica l times Branch daily as needed for Cough. albuterol Yes 2.5mg Inhale 3 Uni vers (PROVENTIL) 8- mL every 4 it y of 2.5 mg /3 00:00: (four) [place] mL (0.083 00 hours. May Medi anna %) also Branch nebulizer nebulize solution one extra every 6 hours. benzonatate Yes 100mg Take 1 Uni vers (TESSALON 12-07 capsule by [employer]) 100 00:00: mouth 3 [place] mg capsule 00 (three) Medica l times Branch daily as needed for Cough. benzonatate 2021- No 100mg Take 1 [place] (TESSALON 12-07 capsule by itDestiny) 100 00:00: 00:00 mouth 3 [place] mg capsule 00 :00 (three) Medica l times Branch daily as needed for Cough. predniSONE 2021- No 1 tab PO [place] (DELTASONE) 12-07 BID x 4 ity of 20 mg 00:00: 00:00 days [place] tablet 00 :00 [facility] Vital Signs Vital Name Observation Time Observation Value Comments Source Systolic blood 2022-04-16 15:20:00 112 mm[Hg] [facility] Diastolic blood 2022-04-16 15:20:00 76 mm[Hg] [facility] Heart rate 2022-04-16 15:20:00 105 /min [facility] Body temperature 2022-04-16 15:20:00 37.28 Lillian [facility] Respiratory rate 2022-04-16 15:20:00 16 /min [facility] Body height 2022-04-16 15:20:00 149.9 cm [facility] Body weight 2022-04-16 15:20:00 88.451 kg [facility] [place] [facility] BMI 2022-04-16 15:20:00 39.39 kg/m2 [facility] [place] [facility] Oxygen saturation in 2022-04-16 15:20:00 99 /min University of Arterial blood by [facility] Pulse oximetry Branch Body temperature 2022-04-09 16:11:00 36.94 Lillian [facility] [place] [facility] Respiratory rate 2022-04-09 16:11:00 16 /min [facility] [place] [facility] Body height 2022-04-09 16:11:00 155.4 cm [facility] [place] [facility] Body weight 2022-04-09 16:11:00 88.406 kg [facility] [place] [facility] BMI 2022-04-09 16:11:00 36.59 kg/m2 [facility] [place] [facility] Oxygen saturation in 2022-04-09 16:11:00 99 /min University of Arterial blood by [facility] Pulse oximetry Branch Systolic blood 2022-04-09 16:11:00 115 mm[Hg] Univer sity of pressure [place] [facility] Diastolic blood 2022-04-09 16:11:00 78 mm[Hg] Unive rsity of pressure [place] [facility] Heart rate 2022-04-09 16:11:00 102 /min [facility]i [facility] [place] [facility] Systolic blood 2022-03-25 12:19:00 117 mm[Hg] Univer sity of pressure [place] [facility] Diastolic blood 2022-03-25 12:19:00 90 mm[Hg] Unive rsity of pressure [place] [facility] Heart rate 2022-03-25 12:19:00 68 /min [facility] [place] [facility] Body temperature 2022-03-25 12:19:00 36.44 Lillian [facility] [place] [facility] Respiratory rate 2022-03-25 12:19:00 18 /min Univ [facility] [place] [facility] Body height 2022-03-25 12:19:00 149.9 cm [facility] [place] [facility] Body weight 2022-03-25 12:19:00 89.631 kg [facility] [place] [facility] BMI 2022-03-25 12:19:00 39.91 kg/m2 [facility] [place] [facility] Oxygen saturation in 2022-03-25 12:19:00 98 /min University Arterial blood by [facility] Pulse oximetry Branch Procedures Procedure Date / Time Performed Performing Clinician Keyon e CONSENT/REFUSAL FOR 2022-04-09 15:57:48 Doctor Unassigned, No [facility] [place] DIAGNOSIS AND Name Medical Branch TREATMENT ASSIGNMENT OF BENEFITS 2022-04-09 15:57:35 Doctor Unassigned, No [facility] Name Medical Branch POCT SARS-COV-2 2022-04-09 00:00:00 Georgette Gordon o f [place] ANTIGEN (BINAX NOW) Medical Bran ch NOTICE OF PRIVACY 2022-03-25 12:07:28 Doctor Unassigned, No Univ [facility] Name Medical Branch CONSENT/REFUSAL FOR 2022-03-25 12:07:12 [facility]igned, No [facility] Medical Branch TREATMENT Encounters Start End Encounter Admission Attending Care Care Encounter Source Date/Time Date/Time Type Type Clinicians Facility Department ID 2022-08-18 2022-08-18 Outpatient [facility] [id number] Manuel 13:51:51 13:51:51 [id number] F Christoph 2022 [facility] [id number] Univers 00:00:00 00:00:00 [facility] [id number] i ty of [place] [id number] [place] CARMEN?BLEA [id number] [address] MEDICAL OFFICE BUILDING 2022-04-16 2022-04-16 Outpatient R MENG [facility] [id number] Univers 09:00:00 09:47:53 CLEO almanza o f [facility] 2022-04-16 2022-04-16 [facility] [id number]. [id number] Univers 09:00:00 09:47:53 Care Unknown, [facility] [id number] ity [facility] [id number] [place] CARMEN?BLEA [id number] [address] MEDICAL OFFICE BUILDING 2022-04-09 2022-04-09 Urgent Georgette Gordon [facility] [id number] Univers 09:40:00 10:00:00 Care Unknown, Attending HEALTH [id number] ity of [place] [id number] [place] CARMEN?BLEA [id number] [facility] [address] MEDICAL OFFICE BUILDING 2022-04-09 2022-04-09 Outpatient R MANUEL [facility] [id number] Univers 09:40:00 09:40:00 GEORGETTE ity of [facility] 2022-04-09 2022-04-09 Orders Doctor GOMES [id number] Univers 00:00:00 00:00:00 Only Unassigned, JOANN [id number] [facility] 4.2.7.2.686 [place] [id number] [facility] [address] [place] 2022-03-25 2022-03-25 Emergency X [facility] ERT [id number] Univers 06:18:00 07:50:00 WAKILI ity of [facility] 2022-03-25 2022-03-25 Emergency [facility] [id number] Univers 06:18:00 07:50:00 Brian SARGENT [id number] ity [facility] 4[place]2.7.2.686 [place] [id number] [facility] [address] [place] 2021-07-26 2021-07-26 Letter ELISEO Lovell [id number] Univers 00:00:00 00:00:00 (Out) Kathy DAVID [id number] it y of [facility] 4.2.7.2.686 [place] [id number] [facility] [address] [place] 2021-07-25 2021-07-25 Outpatient R LETICIA [facility] [id number] Univers 17:20:00 17:57:49 SZAHIRA it y of [facility] 2020-02-11 2020-02-12 Emergency [facility] [id number] 23:02:00 01:52:00 Julia Sargent [id number] [place] 4.2.7.2.686 [place] [id number] 2020-02-11 2020-02-11 Emergency X [facility] ERT [id number] Univers 22:47:00 22:47:00 [facility] Results Test Description Test Time Test Comments Results Result Comments Source POCT SARS-COV-2 ANTIGEN (BINAX NOW) 2022-04-09 16:15:00 Test Item Value Reference Range Interpretation Comme nts POCT SARS-COV-2 ANTIGEN (test code = 75058-8) Positive Not Dete cted A On board controls acceptable with C Line (test code = 3574) Yes Lab Interpretation (test code = 74567-4) Abnormal [facility]
[2022-12-05] MEDS ORDERED: HYDROCOD 2.5mg-ACETAMIN 108mg/5mL Soln ONE (22:08)
--- NOTE | 2022-12-05 23:34 | ER ---
Nurse's Notes [facility] Name: Cate Brown Age: 27 yrs Sex: Female : 1995 Arrival Date: 12/05/2022 Time: 20:38 Bed 10 Private MD: Diagnosis: Streptococcal pharyngitis Presentation: 12/05 20:45 Chief complaint: Patient states: sore throat and left ear pain. Coronavirus screen: At as6 this time, the client does not indicate any symptoms associated with coronavirus-19. Ebola Screen: No symptoms or risks identified at this time. Initial Sepsis Screen: Does the patient meet any 2 criteria? No. Patient's initial sepsis screen is negative. Does the patient have a suspected source of infection? No. Patient's initial sepsis screen is negative. Risk Assessment: Do you want to hurt yourself or someone else? Patient reports no desire to harm self or others. Onset of symptoms was November 28, 2022. 20:45 Method Of Arrival: Ambulatory as6 20:45 Acuity: JOSELITO 4 as6 Triage Assessment: 22:37 General: Appears uncomfortable, Behavior is calm, cooperative. Pain: Complains of pain as6 in throat. EENT: Throat is reddened has enlarged tonsils Reports difficulty swallowing pain in left ear when swallowing. Neuro: Level of Consciousness is awake, alert, obeys commands, Oriented to person, place, time, situation. Cardiovascular: Capillary refill < 3 seconds Patient's skin is warm and dry. Respiratory: Reports cough that is Respiratory effort is even, unlabored, Respiratory pattern is regular, symmetrical. Historical: - Allergies: 20:48 No Known Allergies; as6 - PMHx: 20:48 Pancreatitis; as6 - PSHx: 20:48 None; as6 - Immunization history:: Client reports receiving the 2nd dose of the Covid vaccine, Client reports receiving the 2nd dose of the Covid vaccine, moderna. - Social history:: Smoking status: Patient denies any tobacco usage or history of. Screenin:37 [facility] ED Fall Risk Assessment (Adult) Score/Fall Risk Level 0 - 2 = Low Risk. Abuse as6 screen: Denies threats or abuse. Denies injuries from another. Nutritional screening: No deficits noted. Tuberculosis screening: No symptoms or risk factors identified. Vital Signs: 20:45 BP 126 / 91; Pulse 90; Resp 18 S; Temp 99.9(O); Pulse Ox 100% on R/A; Weight 89.81 kg as6 (R); Height 4 ft. 11 in. (R); Pain 7/10; 23:43 BP 123 / 79; Pulse 82; Resp 18 S; Pulse Ox 100% on R/A; as6 20:45 Body Mass Index 39.99 (89.81 kg, 149.86 cm) as6 20:45 Pain Scale: Adult as6 ED Course: 20:39 Patient arrived in ED. rg4 20:46 Ray Calderon PA is PHCP. cp 20:46 Shree Barboza MD is Attending Physician. cp 20:48 Triage completed. as6 20:49 Arm band placed on. as6 22:05 Influenza Screen (a \T\ B) Sent. as6 22:05 COVID-19 SARS RT PCR Sent. as6 22:05 Strep Sent. as6 22:37 Oli Smiley, YOUNG is Primary Nurse. as6 22:37 Bed in low position. Call light in reach. as6 23:43 Provided Education on: discharge teaching. as6 23:43 No provider procedures requiring assistance completed. Patient did not have IV access as6 during this emergency room visit. Administered Medications: 22:05 Drug: Lortab PO Liquid 15 ml Route: PO; as6 23:43 Follow up: Response: No adverse reaction as6 23:43 Drug: Amoxicillin-Clavulanate PO 875 mg Route: PO; as6 23:43 Follow up: Response: No adverse reaction as6 Medication: 22:37 VIS not applicable for this client. as6 Outcome: 23:32 Discharge ordered by . cp 23:43 Discharged to home ambulatory. as6 23:43 Condition: stable 23:43 Discharge instructions given to patient, Instructed on discharge instructions, follow up and referral plans. medication usage, Demonstrated understanding of instructions, follow-up care, medications, Prescriptions given X 3. 23:44 Patient left the ED. as6 Signatures: Ray Calderon PA PA cp Garcia, Rubi rg4 Oli Smiley, RN RN as6
--- NOTE | 2022-12-05 23:34 | EDPHYS ---
Physician Documentation [facility] Name: Cate Brown Age: 27 yrs Sex: Female : 1995 Arrival Date: 12/05/2022 Time: 20:38 Bed 10 Private MD: ED Physician Shree Barboza HPI: 12/05 22:00 This 27 yrs old Female presents to ER via Ambulatory with complaints of Ear cp Pain, Sore Throat. 22:00 The patient presents with pain, that is acute. The complaints affect the left ear. cp Onset: The symptoms/episode began/occurred 1 week(s) ago. Associated signs and symptoms: Pertinent positives: sore throat, Pertinent negatives: cough, fever, rhinorrhea, sinus trouble, shortness of breath, vomiting. Severity of symptoms: in the emergency department the symptoms are unchanged despite home interventions. Historical: - Allergies: 20:48 No Known Allergies; as6 - PMHx: 20:48 Pancreatitis; as6 - PSHx: 20:48 None; as6 - Immunization history:: Client reports receiving the 2nd dose of the Covid vaccine, Client reports receiving the 2nd dose of the Covid vaccine, moderna. - Social history:: Smoking status: Patient denies any tobacco usage or history of. ROS: 22:05 Constitutional: Negative for body aches, chills, fever, poor PO intake. cp 22:05 Eyes: Negative for injury, pain, redness, and discharge. cp 22:05 ENT: Positive for ear pain, sore throat, Negative for drainage from ear(s), rhinorrhea, sinus congestion, sinus pain, difficulty swallowing, difficulty handling secretions. 22:05 Cardiovascular: Negative for chest pain, palpitations. 22:05 Respiratory: Negative for cough, shortness of breath, wheezing. 22:05 Abdomen/GI: Negative for abdominal pain, vomiting, diarrhea, constipation. 22:05 Skin: Negative for rash. 22:05 Neuro: Negative for altered mental status, dizziness, headache, weakness. 22:05 All other systems are negative. Exam: 22:10 Constitutional: The patient appears in no acute distress, alert, awake, non-toxic, well cp developed, well nourished, uncomfortable. 22:10 Head/Face: Normocephalic, atraumatic. cp 22:10 Eyes: Periorbital structures: appear normal, Conjunctiva: normal, no exudate, no injection, Lids and lashes: appear normal, bilaterally. 22:10 ENT: External ear(s): are unremarkable, Ear canal(s): are normal, clear, TM's: bulging, is not appreciated, bilaterally, dullness, bilaterally, erythema, is not appreciated, bilaterally, Nose: is normal, Mouth: Lips: moist, Oral mucosa: moist, Posterior pharynx: Airway: no evidence of obstruction, patent, Tonsils: with erythema, left tonsil mildly enlarged, no exudate, Uvula: midline, swelling, is not appreciated, erythema, that is marked, Voice: is normal. 22:10 Neck: ROM/movement: limited range of motion, is not appreciated, Meningeal signs: are not present, nuchal rigidity, is not appreciated. 22:10 Chest/axilla: Inspection: normal. 22:10 Cardiovascular: Rate: normal, Rhythm: regular. 22:10 Respiratory: the patient does not display signs of respiratory distress, Respirations: normal, no use of accessory muscles, no retractions, labored breathing, is not present, Breath sounds: are clear throughout, no decreased breath sounds, no stridor, no wheezing. 22:10 Abdomen/GI: Inspection: abdomen appears normal, Palpation: abdomen is soft and non-tender, in all quadrants. 22:10 Skin: no rash present. Vital Signs: 20:45 BP 126 / 91; Pulse 90; Resp 18 S; Temp 99.9(O); Pulse Ox 100% on R/A; Weight 89.81 kg as6 (R); Height 4 ft. 11 in. (R); Pain 7/10; 23:43 BP 123 / 79; Pulse 82; Resp 18 S; Pulse Ox 100% on R/A; as6 20:45 Body Mass Index 39.99 (89.81 kg, 149.86 cm) as6 20:45 Pain Scale: Adult as6 MDM: 21:07 Patient medically screened. cp 23:31 Data reviewed: vital signs, nurses notes, lab test result(s). cp 23:31 Differential diagnosis: otitis media, otitis externa, cerumen impaction, strep throat, cp tonsillar abscess, tonsillitis. I considered the following discharge prescriptions or medication management in the emergency department Medications were administered in the Emergency Department. See MAR. Counseling: I had a detailed discussion with the patient and/or guardian regarding: the historical points, exam findings, and any diagnostic results supporting the discharge/admit diagnosis, lab results, to return to the emergency department if symptoms worsen or persist or if there are any questions or concerns that arise at home. Response to treatment: the patient's symptoms have markedly improved after treatment, and as a result, I will discharge patient. 12/05 21:54 Order name: Strep cp 12/05 21:54 Order name: COVID-19 SARS RT PCR cp 12/05 21:54 Order name: Influenza Screen (a \T\ B) cp Administered Medications: 22:05 Drug: Lortab PO Liquid 15 ml Route: PO; as6 23:43 Follow up: Response: No adverse reaction as6 23:43 Drug: Amoxicillin-Clavulanate PO 875 mg Route: PO; as6 23:43 Follow up: Response: No adverse reaction as6 Disposition Summary: 12/05/22 23:32 Discharge Ordered Location: Home cp Problem: new cp Symptoms: have improved cp Condition: Stable cp Diagnosis - Streptococcal pharyngitis cp Followup: cp - With: Emergency Department - When: As needed - Reason: Worsening of condition Discharge Instructions: - Discharge Summary Sheet cp - Strep Throat, Adult cp Forms: - Medication Reconciliation Form cp - Thank You Letter cp - Antibiotic Education cp - Prescription Opioid Use cp - Patient Portal Instructions cp Prescriptions: - Lidocaine Viscous - take 5 milliliter by ORAL route every 4-6 hours As needed; 1 unit; Refills: 0, cp Product Selection Permitted - Augmentin 875-125 mg Oral Tablet - take 1 tablet by ORAL route every 12 hours for 10 days; 20 tablet; Refills: 0, cp Product Selection Permitted - Ibuprofen 800 mg Oral Tablet - take 1 tablet by ORAL route every 8 hours As needed take with food; 30 tablet; cp Refills: 0, Product Selection Permitted Addendum: 12/07/2022 05:11 Co-signature as Attending Physician, Shree Barboza MD I agree with the assessment s p4 and plan of care. I reviewed the patient's care provided by the Advanced Practice Provider and agree with the diagnosis and treatment plan. Signatures: Dispatcher [employer] EDCT Ray Calderon PA PA cp Slawson, Ashby, YOUNG RN as6 Shree Barboza MD MD sp4
[2022-12-05] MEDS ORDERED: AMOX/K CLAV 875 MG TAB ONE (23:45)
[2022-12-05 23:55] VITALS: TEMP 99.9; O2SAT 100
[2022-12-05 23:57] VITALS: BP 123/79
== END 2022-12-05 23:44 | disposition home or self-care (01) ==
LOC: ER 20:38
DX: J02.0 Streptococcal pharyngitis (principal); Z20.822 Contact with and (suspected) exposure to COVID-19
CPT/HCPCS: 87081; 87635; 87804; 99283